=== PATIENT | female | born 1990 | race Caucasian/White ===

== ENCOUNTER 2016-05-02 19:52 | Emergency (ER) | payer OTHER ==
--- NOTE | 2016-05-02 23:06 | ED CLINICAL REPORT ---
Clinical Report - Physicians/Mid Levels [facility] [address] [place] [address] 05/02/2016 19:54 [id number] Time Seen: 20:15 May 02 2016. Arrived- By private vehicle. Historian- patient. HISTORY OF PRESENT ILLNESS Chief Complaint: ABDOMINAL PAIN. It is described as "pain" and it is described as located in the right upper quadrant and in the upper abdomen. This started today and is still present. 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 No vomiting or diarrhea. (Patient reports nausea over the last 3 days, with now associated abdominal pain right upper quadrant, unsure if this is alleviated or relieved with food. atient has had no cough, no fevers. No chest pain or shortness of breath.). REVIEW OF SYSTEMS No constipation, difficulty with urination, pain with urination, urinary frequency or fever. No chest pain, difficulty breathing or chills. Denies current . All systems otherwise negative, except as recorded above. PAST HISTORY Has had urinary calculi. SOCIAL HISTORY Smoker- current status unknown. History of drug use former heroin ivda. ADDITIONAL NOTES The nursing notes have been reviewed. PHYSICAL EXAM Vital Signs: 05/02/2016 20:03 BP: 147/72. HR: 88. RR: 16. O2 saturation: 100%. Temp: 98.9 F. Pain level now: 10/10. Eyes: Eyes normal inspection. ENT: Nose normal. Pharynx normal. Neck: Normal inspection. CVS: Normal heart rate and rhythm. Heart sounds normal. No cardiac murmur. Respiratory: No respiratory distress. Breath sounds normal. Abdomen: Soft. Mild tenderness in the upper abdomen and epigastric area. No guarding or Oliver's sign present. No obesity. Skin: Normal skin color. Neuro: Oriented X 3. LABS, X-RAYS, AND EKG EKG: EKG time: (2019). No acute process. No acute ischemia. Normal EKG. Rate: 87. Normal P waves. Normal LION. Normal QRS complex. Normal ST and T waves and QT. The study has been interpreted contemporaneously. The EKG appears to be a good tracing. Laboratory Tests: UA-Culture if indicated: (YUNG: 05/02/2016 21:17) ( [facility] 22[facility]54[facility] Final results Test Result Flag Units (Reference) URINE COLOR YELLOW URINE APPEARANCE CLEAR URINE GLUCOSE NEGATIVE (NEGATIVE) URINE BILIRUBIN NEGATIVE (NEGATIVE) URINE KETONE NEGATIVE (NEGATIVE) URINE SPECIFIC GRAVITY 1.010 (1.010-1.030) URINE PH 6.0 (5.0-8.0) URINE PROTEIN NEGATIVE (NEGATIVE) URINE UROBILINOGEN 0.2 EU/dL (0.2-1.0) URINE NITRITE NEGATIVE (NEGATIVE) URINE BLOOD NEGATIVE (NEGATIVE) URINE LEUK ESTERASE NEGATIVE (NEGATIVE) URINE RBC 0-1 rbc/hpf (0-1) URINE WBC 1-3 wbc/hpf (0-1) URINE EPITHELIAL CELLS 0-1 EPI/hpf (0-5) URINE BACTERIA NONE SEEN (NONE SEEN) URINE COMMENT CULT NOT INDICATED URINE CULTURES ARE SET-UP BASED ON THE FOLLOWING CRITERIA:POSITIVE NITRITEPOSITIVE LEUKOCYTE ESTERASEGREATER THAN 10 WHITE BLOOD CELLSMODERATE (2+) OR GREATER BACTERIA Urine: (YUNG: 05/02/2016 21:17) ( [facility] 05/02/2016 22:36) Final results Test Result Flag Units (Reference) URINE NEGATIVE CBC w Diff: (YUNG: 05/02/2016 20:49) ( [facility] 05/02/2016 21:03) Final results Test Result Flag Units (Reference) WHITE BLOOD COUNT 9.2 K/uL (4.5-11.5) RED BLOOD COUNT 4.71 M/uL (4.00-5.20) HEMOGLOBIN 13.9 gm/dL (12.0-16.0) HEMATOCRIT 41.1 % (36.0-46.0) MEAN CELL VOLUME 87 fL (80-100) MEAN CORPUSCULAR HGB 30 pg (26-34) MEAN CORPUSCULAR HGB CONC 34 g/dL (31-37) RED CELL DISTRIBUTION WIDTH 13.2 % (11.6-14.8) PLATELET COUNT 240 K/uL (150-400) NEUTROPHIL % 50.8 % (50-75) LYMPH % 42.5 H % (25-40) MONO % 4.2 % (3-14) EOSINOPHIL % 2.2 % (0-4) BASOPHIL % 0.3 % (0-2) Lipase: (YUNG: 05/02/2016 20:49) ( MsgRcvd 05/02/2016 21:48) Final results Test Result Flag Units (Reference) LIPASE 155 U/L (73-393) CMP: (YUNG: 05/02/2016 20:49) ( MsgRcvd 05/02/2016 21:57) Final results Test Result Flag Units (Reference) GLUCOSE 92 mg/dL (70-110) BUN 14 mg/dL (7-18) CREATININE 1.1 mg/dL (0.6-1.3) Estimated GFR >60 mL/min Estimated GFR- >60 mL/min Note: Persistent reduction over 3 months in eGFR<60 mL/min/1.73 m2 defines CKD. Patients with eGFR values>=60 mL/min/1.73 m2 may also have CKD if evidence ofpersistent proteinuria. Additional information may be foundat www.kidney.org. SODIUM 137 mmol/L (136-145) POTASSIUM 3.6 mmol/L (3.5-5.1) CHLORIDE 101 mmol/L (98-107) CARBON DIOXIDE 26 mmol/L (21-32) CALCIUM 8.6 mg/dL (8.5-10.1) TOTAL PROTEIN 7.1 g/dL (6.4-8.2) ALBUMIN 4.1 g/dL (3.3-5.0) BILIRUBIN, TOTAL 0.4 mg/dL (0.0-1.0) ALKALINE PHOSPHATASE 36 L U/L (46-116) AST (SGOT) 18 U/L (15-37) ALT (SGPT) 20 U/L (12-78) . Note - Tests: (US abd limited, neg). PROGRESS AND PROCEDURES Course of Care: During the time in the ED, the following DDX were considered: acute surgical abdomen, hemodynamic or metabolic instability, dehydration, gastroenteritis-viral, food borne, or bacterial, food intolerance, irritable or inflammatory bowel, infection, sepsis. Patient asleep in room, arousable, reports pain. She has no chest pain or shortness of breath. EKG unremarkable. Ultrasound is unremarkable. Labs are unremarkable. Patient to follow up outpatient. No shortness of breath or chest pain. Normal cardiac. PERC rule negative. 05/02/2016 22:23 BP: 119/76. HR: 68. RR: 16. O2 saturation: 100%. Temp: 98.2 F. Pain level now: 12/29. Patient is stable. Symptoms better. Patient/family counseled. Differential Diagnosis: I considered muscle strain, myocardial infarction, aortic dissection and pulmonary etiology as a possible cause of chest pain in this patient. This is a partial list of diagnoses considered. I considered gastritis, gastroenteritis, acute appendicitis, diverticulitis, biliary colic, cholecystitis, hepatitis, pancreatitis, common bile duct obstruction, splenic injury, splenic rupture, ascites, urinary tract infection, cystitis and ovarian cyst as a possible cause of abdominal pain in this patient. Disposition: Discharged. CLINICAL IMPRESSION Abdominal pain of unknown cause. INSTRUCTIONS Drink plenty of fluids. Warnings: Further evaluation is necessary. Prescription Medications: Zofran (orally disintegrating tablets) 4 mg: take 1 orally every 6 hours for 3 days as needed for nausea. Dispense ten (10). No refill. Substitution is permissible. Pepcid 20 mg: take 1 orally every 12 hours for 5 days as needed for indigestion. Dispense ten (10). No refills. Substitution is permissible. Ultram 50 mg: take 1 orally every 6 hours for 3 days, as needed for pain. Dispense ten (10). No refills. Phenergan 12.5 mg suppositories: insert 1 rectally every 6 hours as needed for nausea. Dispense ten (10). No refill. Substitution is permissible Follow-up: Follow up with your doctor in three days. Follow-up with: Hadley Del Rosario MD, General Surgeon, , [facility], [address] [place] [address], [facility] Follow up. Call for the next available appointment. (Electronically signed by Sweetie Lorenz P.AKanu-Starla 05/02/2016 23:25)
--- NOTE | 2016-05-02 23:06 | ED NURSING NOTES ---
Clinical Report - Nurses [facility] [address] [place] [address] 05/02/2016 19:54 Patient: EVE ALBRIGHT TRIAGE Triage time 2000 PM. Acuity: LEVEL 3. Chief Complaint: ABDOMINAL PAIN and NAUSEA. Alert. No acute distress. --20:08 Roc Coelho R.N. 20:03 05/02/16. BP: 147/72. HR: 88. RR: 16. O2 saturation: 100%. Temp: 98.9 F. Pain level now: 12/29. --20:08 Roc Coelho R.N. Weight: 72.5 kg stated. Height/Length: 61 inches Per Patient. BMI: 30.2. --20:06 Roc Coelho R.N. Medications Abilify Oral (Tablet 15 mg) 1 tablet, daily. ALPRAZolam Oral 1 mg, 3x a day as needed. Etodolac Oral. HydrOXYzine HCl Oral 25 mg- 50mg , 4x a day as needed. Levothyroxine Sodium Oral 112 mcg, daily. Methadone HCl Oral 78. Naproxen Oral 500 mg, 3x a day as needed. Tylenol Oral. --20:05 Roc Coelho R.N. Allergies Codeine.(itching) Compazine.(anxiety) Reglan.(anxiety) Toradol.(anxiety) Vancomycin.(itching, swelling) --20:05 Roc Coelho R.N. History Arrived by private vehicle. Historian: patient. Accompanied by family. This is a new problem and onset was gradual. (about 3 days). ( Patient presents to the ED with symptoms of gradual onset nausea x3 days and severe upper abdominal pain beginning just prior to arrival. Patient reports pain that comes and goes in her upper abdomen that wraps around her ribs.). 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 PAST MEDICAL HX: Last normal menstrual period- Apr 03. SOCIAL HX: Light tobacco smoker (cigarette)- less than 1/2 a pack per day. Alcohol use. (no). 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 No infectious disease exposure. FALL RISK ASSESSMENT: Fall risk assessment completed. No fall risk identified. NUTRITIONAL RISK ASSESSMENT: The nutritional risk assessment revealed no deficiencies. FUNCTIONAL ASSESSMENT: Functional assessment: no impairments noted. LEARNING NEEDS ASSESSMENT: The learning needs assessment revealed no barriers. SKIN INTEGRITY ASSESSMENT: Skin integrity risk assessment completed. No skin integrity risk identified. --20:08 Roc Coelho R.N. PROBLEMS: Back Pain. Tetanus Status. Acute Pain. Substance Abuse. Immunizations. Cellulitis. Pharyngitis. LNMP - Last Normal Menstrual Period. Lifestyle / Substance Problems. Abscess. --20:06 Roc Coelho R.N. ADDITIONAL SURGERIES: Abscess I&D's. Hernia Repair. Inguinal Hernia Repair. --20:06 Roc Coelho R.N. Interventions ID and allergy band on patient. --20:08 Roc Coelho R.N. PHYSICAL ASSESSMENT Ambulatory to room. GENERAL / NEURO / PSYCH: Alert. Oriented X 4. Appears in no acute distress. HEENT: Mucous membranes are pink. RESPIRATORY: Respirations not labored. Breath sounds within normal limits. CVS: Normal sinus rhythm noted. Capillary refill less than 2 seconds. GI / : The patient has had nausea. Emesis noted. Has vomited once. Obesity. Abdominal distention. Abdominal tenderness. Guarding present. Bowel sounds within normal limits. Stool color normal. SKIN: Skin is warm and dry. --20:10 Roc Coelho R.N. NURSING PROGRESS NOTES Reassurance given. Call light placed in reach. Side rails up x 2. Bed placed in lowest position. Brakes of bed on. --20:10 Roc Coelho R.N. 20:20. EKG was performed by a tech. --20:21 Paulette Hernandez ER Tech1 20:56 05/02/2016 Site #1 started via IV in the left wrist with an 22g angiocath; two attempts. Blood drawn: rainbow set. Labeled in the presence of the patient and sent to the lab. Saline lock flushed with 10 mL saline. --20:56 Roc Coelho R.N. 20:56 05/02/2016 Started IV Fluids IV NS (Saline); bolus of 1000 mL wide open via site #1. Allergies verified and confirmed 5 rights. IV patency established. IV site checked: no pain, redness, or swelling. IV flushed thoroughly pre- and post-medication administration. --20:56 Roc Coelho R.N. 20:57 05/02/2016 Started 12.5 mg of PHENERGAN (Promethazine HCl) IVPB in bag #1 1000 mL; over 15 minute(s) via site #1; Allergies verified and confirmed 5 rights. IV patency established. IV site checked: no pain, redness, or swelling. IV flushed thoroughly pre- and post-medication administration. --20:57 Roc Coelho R.N. 21:25. Checked patient name and birthdate: patient confirmed. Blood samples drawn with syringe and 25g butterfly by tech per protocol ; labeled in presence of the patient and sent to lab: rainbow set. --21:30 Yolande Oliver ER Tech1 21:39 05/02/16. BP: 100/60. HR: 63. RR: 16. O2 saturation: 96%. Pain level now: 12/29. --21:40 Roc Coelho R.N. Call light placed in reach. Side rails up x 2. Bed placed in lowest position. Brakes of bed on. --21:40 Roc Coelho R.N. 22:08 05/02/2016 Hydrocodone-APAP (Hydrocodone-Acetaminophen) PO 5/325 mg Tablets 10 mL given. Allergies verified, confirmed 5 rights and sedative warning given to the patient. --22:08 Roc Coelho R.N. Patient ID band checked for patient name and birthdate. Instructions provided to collect clean catch urine and patient verbalized understanding. Clean catch urine collected with return of yellow-colored clear urine; odor is normal; sample sent to lab for urinalysis, culture and HCG. Specimen labeled in the presence of the patient. Call light placed in reach. Side rails up x 2. Bed placed in lowest position. Brakes of bed on. --22:23 Roc Coelho R.N. 22:23 05/02/16. BP: 119/76. HR: 68. RR: 16. O2 saturation: 100%. Temp: 98.2 F. Pain level now: 12/29. --22:23 Roc Coelho R.N. ( Patient appears to be sleeping. Respirations even and unlabored.). --23:05 Roc Coelho R.N. 23:05/02/2016 Phenergan (Promethazine HCl) CO Supp/(CO) 12.5 mg given. Allergies verified, confirmed 5 rights and sedative warning given to the patient. --23:29 Roc Coelho R.N. DISPOSITION / DISCHARGE 23:05/02/2016 Site #1 removed upon discharge. Catheter intact. Pressure dressing applied. --23:31 Roc Coelho R.N. 23:05/02/2016 IV Fluids IV NS Discontinued: bag #1 discontinued upon discharge. Total amount infused: 1000 mL. IV patency established. IV site checked: no pain, redness, or swelling. IV flushed thoroughly. --23:31 Roc Coelho R.N. Departure time: 2331 PM. Condition at departure: improved. The goals identified in the patient's plan of care were met. No learning barriers present. Discharge instructions provided and reviewed with the patient. Reviewed medication(s) side effects, precautions, dosing and course information. Prescription(s) given to the patient. Patient verbalized understanding. Written instructions provided in Divehi. The patient was discharged home and accompanied by parent. She left the Emergency Department ambulatory and via private vehicle. Parent driving. FALL RISK ASSESSMENT: Fall risk assessment completed. No fall risk identified. --23:31 Roc Coelho R.N. 23:29 05/02/16. BP: 128/70. HR: 69. RR: 16. O2 saturation: 98%. Temp: 98.2 F (oral). Pain level now: 09/28. --23:31 Roc Coelho R.N. ( Eve upset because she wants a copy of her medical records from today's visit for her clinic she is being treated for heroin abuse. Gave Eve Medical Records number and asked her or the clinic to call to request from today's visit. She expresses frustration and anger stating "you guys didn't even find out what was going on with me and I am hurting." Neha (CANDIE) came back in to room to financial health counselor Eve on her discharge dx and verbalize her lab work was WNL. Eve reiterates she is frustrated we cannot tell her why she is still in a lot of pain. Neha (CANDIE) and Reddy (sales service technician) reviewed discharge medications for symptoms control with Eve. Eve requests to speak with Nursing Course Developer after being told we cannot print medical records from today's visit. NATACHA García (Director Of Culture) encouraged and reiterated Eve to call medical records or have the clinic call medical records on Wednesday. After Eve expressed concerned of being "kicked off her program," Ricky reassured Eve we treat patients who are going through rehab all the time and are more than happy to send medical records from visits to the clinic on behalf of the patient. Ricky (Director Of Culture) and Reddy (sales service technician) wrote names on Eve's dicharge paperwork per her request. Eve left angry and frustrated.). --00:09 Reddy Babb R.N. late entry -23:35 PM. ( Patient requesting to see RN stating that she has questions about discharge instructions. Patient states that she is frustrated that ED staff was not able to find a cause for abdominal pain and would not prescribed Vicodin for pain relief. Explained to patient that her lab work and imaging were WNL and emphasized taking the prescribed medications for symptom control. Emphasized the importance of follow up care in 3 days. Patient continues to express her frustration with ED staff and prescribed medications. Referred patient to cheryl, NATACHA.). --00:17 Roc Coelho R.N. Locked/Released at 05/03/2016 0:19 by Roc Coeloh R.N.
--- NOTE | 2016-05-02 23:06 | ED ORDER SUMMARY ---
..... Patient: HENRY ALBRIGHT OrderSheet [facility] VisitID: [id number] [address] [place] [address] 25y, F Registration Date/Time: 05/02/2016 ORDER SHEET Weight: 72.5 kg (stated) Allergies: Codeine, Compazine, Reglan, Toradol, Vancomycin GENERAL ORDERS: CBC w Diff Urgent (20:05/02/2016 EKoroleva P.A.-C) (Ack 20:09 ALawrence ER Tech1) (20:57 HOShaughnessy R.N.) CMP Urgent (20:05/02/2016 EKoroleva P.A.-C) (Ack 20:09 ALawrence ER Tech1) (20:57 HOShaughnessy R.N.) UA-Culture if indicated Urgent (20:05/02/2016 EKoroleva P.A.-C) (Ack 20:09 ALawrence ER Tech1) (22:24 HOShaughnessy R.N.) Urine Urgent (20:06 05/02/2016 EKoroleva P.A.-C) (Ack 20:09 ALawrence ER Tech1) (23:15 JDeElena R.N.) EKG - ER Stat (20:06 05/02/2016 EKoroleva P.A.-C) (Ack 20:09 ALawrence ER Tech1) (20:20 AMcQuoid ER Tech1) Lipase Urgent (20:08 05/02/2016 EKoroleva P.A.-C) (Ack 20:09 ALawrence ER Tech1) (20:57 HOShaughnessy R.N.) US Abdomen Limited (No) Urgent (20:05/02/2016 EKoroleva P.A.-C) (Ack 20:20 ALawrence ER Tech1) (23:16 JDeElena R.N.) NPO (20:05/02/2016 EKoroleva P.A.-C) (Ack 20:20 ALawrence ER Tech1) (21:29 ALawrence ER Tech1) MEDICATION ORDERS: Phenergan IV 12.5 mg (HIGH ALERT MEDICATION, NOW) (20:06 05/02/2016 EKoroleva P.A.-C) (20:57 Virgilio R.N.) Hydrocodone-APAP PO 30 mL (NOW, HIGH ALERT MEDICATION) (22:05 05/02/2016 EKoroleva P.A.-C) (22:08 HOScriss R.N.) Phenergan KS 12.5 mg (HIGH ALERT MEDICATION) (23:19 05/02/2016 EKoroleva P.A.-C) (23:29 HOScriss R.N.) IV FLUIDS: IV NS : initial bolus 1000 mL (1000 mL/hr), then 1000 mL/hr for X1 (NOW); Carlos (20:06 05/02/2016 EKoroleva P.A.-C) (20:56 HOScriss R.N.) ORDER SHEET NOTES: [Electronically signed by Sweetie Lorenz PKanuAKanu-C (23:25 05/02/2016)] [Electronically signed by Roc Coelho R.N. (00:19 05/03/2016)] [Electronically locked/signed by Roc Coelho R.N. (00:05/03/2016)]
--- NOTE | 2016-05-02 23:06 | ED NURSING NOTES ---
Clinical Report - Nurses [facility] [address] [place] [address] 05/02/2016 19:54 Patient: EVE ALBRIGHT TRIAGE Triage time 2000 PM. Acuity: LEVEL 3. Chief Complaint: ABDOMINAL PAIN and NAUSEA. Alert. No acute distress. --20:08 Roc Coelho R.N. 20:03 05/02/16. BP: 147/72. HR: 88. RR: 16. O2 saturation: 100%. Temp: 98.9 F. Pain level now: 12/29. --20:08 Roc Coelho R.N. Weight: 72.5 kg stated. Height/Length: 61 inches Per Patient. BMI: 30.2. --20:06 Roc Coelho R.N. Medications Abilify Oral (Tablet 15 mg) 1 tablet, daily. ALPRAZolam Oral 1 mg, 3x a day as needed. Etodolac Oral. HydrOXYzine HCl Oral 25 mg- 50mg , 4x a day as needed. Levothyroxine Sodium Oral 112 mcg, daily. Methadone HCl Oral 78. Naproxen Oral 500 mg, 3x a day as needed. Tylenol Oral. --20:05 Roc Coelho R.N. Allergies Codeine.(itching) Compazine.(anxiety) Reglan.(anxiety) Toradol.(anxiety) Vancomycin.(itching, swelling) --20:05 Roc Coelho R.N. History Arrived by private vehicle. Historian: patient. Accompanied by family. This is a new problem and onset was gradual. (about 3 days). ( Patient presents to the ED with symptoms of gradual onset nausea x3 days and severe upper abdominal pain beginning just prior to arrival. Patient reports pain that comes and goes in her upper abdomen that wraps around her ribs.). Treatment TRAVEL REGISTERED NURSE ONCOLOGY: (promethazine). PAST MEDICAL HX: Last normal menstrual period- Apr 03. SOCIAL HX: Light tobacco smoker (cigarette)- less than 1/2 a pack per day. Alcohol use. (no). 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 No infectious disease exposure. FALL RISK ASSESSMENT: Fall risk assessment completed. No fall risk identified. NUTRITIONAL RISK ASSESSMENT: The nutritional risk assessment revealed no deficiencies. FUNCTIONAL ASSESSMENT: Functional assessment: no impairments noted. LEARNING NEEDS ASSESSMENT: The learning needs assessment revealed no barriers. SKIN INTEGRITY ASSESSMENT: Skin integrity risk assessment completed. No skin integrity risk identified. --20:08 Roc Coelho R.N. PROBLEMS: Back Pain. Tetanus Status. Acute Pain. Substance Abuse. Immunizations. Cellulitis. Pharyngitis. LNMP - Last Normal Menstrual Period. Lifestyle / Substance Problems. Abscess. --20:06 Roc Coelho R.N. ADDITIONAL SURGERIES: Abscess I&D's. Hernia Repair. Inguinal Hernia Repair. --20:06 Roc Coelho R.N. Interventions ID and allergy band on patient. --20:08 Roc Coelho R.N. PHYSICAL ASSESSMENT Ambulatory to room. GENERAL / NEURO / PSYCH: Alert. Oriented X 4. Appears in no acute distress. HEENT: Mucous membranes are pink. RESPIRATORY: Respirations not labored. Breath sounds within normal limits. CVS: Normal sinus rhythm noted. Capillary refill less than 2 seconds. GI / : The patient has had nausea. Emesis noted. Has vomited once. Obesity. Abdominal distention. Abdominal tenderness. Guarding present. Bowel sounds within normal limits. Stool color normal. SKIN: Skin is warm and dry. --20:10 Roc Coelho R.N. NURSING PROGRESS NOTES Reassurance given. Call light placed in reach. Side rails up x 2. Bed placed in lowest position. Brakes of bed on. --20:10 Roc Coelho R.N. 20:20. EKG was performed by a tech. --20:21 Paulette Hernandez ER Tech1 20:56 05/02/2016 Site #1 started via IV in the left wrist with an 22g angiocath; two attempts. Blood drawn: rainbow set. Labeled in the presence of the patient and sent to the lab. Saline lock flushed with 10 mL saline. --20:56 Roc Coelho R.N. 20:56 05/02/2016 Started IV Fluids IV NS (Saline); bolus of 1000 mL wide open via site #1. Allergies verified and confirmed 5 rights. IV patency established. IV site checked: no pain, redness, or swelling. IV flushed thoroughly pre- and post-medication administration. --20:56 Roc Coelho R.N. 20:57 05/02/2016 Started 12.5 mg of PHENERGAN (Promethazine HCl) IVPB in bag #1 1000 mL; over 15 minute(s) via site #1; Allergies verified and confirmed 5 rights. IV patency established. IV site checked: no pain, redness, or swelling. IV flushed thoroughly pre- and post-medication administration. --20:57 Roc Coelho R.N. 21:25. Checked patient name and birthdate: patient confirmed. Blood samples drawn with syringe and 25g butterfly by tech per protocol ; labeled in presence of the patient and sent to lab: rainbow set. --21:30 Yolande Oliver ER Tech1 21:39 05/02/16. BP: 100/60. HR: 63. RR: 16. O2 saturation: 96%. Pain level now: 12/29. --21:40 Roc Coelho R.N. Call light placed in reach. Side rails up x 2. Bed placed in lowest position. Brakes of bed on. --21:40 Roc Coelho R.N. 22:08 05/02/2016 Hydrocodone-APAP (Hydrocodone-Acetaminophen) PO 5/325 mg Tablets 10 mL given. Allergies verified, confirmed 5 rights and sedative warning given to the patient. --22:08 Roc Coelho R.N. Patient ID band checked for patient name and birthdate. Instructions provided to collect clean catch urine and patient verbalized understanding. Clean catch urine collected with return of yellow-colored clear urine; odor is normal; sample sent to lab for urinalysis, culture and HCG. Specimen labeled in the presence of the patient. Call light placed in reach. Side rails up x 2. Bed placed in lowest position. Brakes of bed on. --22:23 Roc Coelho R.N. 22:23 05/02/16. BP: 119/76. HR: 68. RR: 16. O2 saturation: 100%. Temp: 98.2 F. Pain level now: 12/29. --22:23 Roc Coelho R.N. ( Patient appears to be sleeping. Respirations even and unlabored.). --23:05 Roc Coelho R.N. 23:05/02/2016 Phenergan (Promethazine HCl) MS Supp/(MS) 12.5 mg given. Allergies verified, confirmed 5 rights and sedative warning given to the patient. --23:29 Roc Coelho R.N. DISPOSITION / DISCHARGE 23:05/02/2016 Site #1 removed upon discharge. Catheter intact. Pressure dressing applied. --23:31 Roc Coelho R.N. 23:05/02/2016 IV Fluids IV NS Discontinued: bag #1 discontinued upon discharge. Total amount infused: 1000 mL. IV patency established. IV site checked: no pain, redness, or swelling. IV flushed thoroughly. --23:31 Roc Coelho R.N. Departure time: 2331 PM. Condition at departure: improved. The goals identified in the patient's plan of care were met. No learning barriers present. Discharge instructions provided and reviewed with the patient. Reviewed medication(s) side effects, precautions, dosing and course information. Prescription(s) given to the patient. Patient verbalized understanding. Written instructions provided in Romanian. The patient was discharged home and accompanied by parent. She left the Emergency Department ambulatory and via private vehicle. Parent driving. FALL RISK ASSESSMENT: Fall risk assessment completed. No fall risk identified. --23:31 Roc Coelho R.N. 23:29 05/02/16. BP: 128/70. HR: 69. RR: 16. O2 saturation: 98%. Temp: 98.2 F (oral). Pain level now: 09/28. --23:31 Roc Coelho R.N. ( Eve upset because she wants a copy of her medical records from today's visit for her clinic she is being treated for heroin abuse. Gave Eve Medical Records number and asked her or the clinic to call to request from today's visit. She expresses frustration and anger stating "you guys didn't even find out what was going on with me and I am hurting." Neha (CANDIE) came back in to room to student financial services counselor Eve on her discharge dx and verbalize her lab work was WNL. Eve reiterates she is frustrated we cannot tell her why she is still in a lot of pain. Neha (CANDIE) and Reddy (dust sampler) reviewed discharge medications for symptoms control with Eve. Eve requests to speak with Nursing Work Car Operator after being told we cannot print medical records from today's visit. NATACHA García (Mothercraft Nurse) encouraged and reiterated Eve to call medical records or have the clinic call medical records on Wednesday. After Eve expressed concerned of being "kicked off her program," Ricky reassured Eve we treat patients who are going through rehab all the time and are more than happy to send medical records from visits to the clinic on behalf of the patient. Ricky (Mothercraft Nurse) and Reddy (dust sampler) wrote names on Eve's dicharge paperwork per her request. Eve left angry and frustrated.). --00:09 Reddy Babb R.N. late entry -23:35 PM. ( Patient requesting to see RN stating that she has questions about discharge instructions. Patient states that she is frustrated that ED staff was not able to find a cause for abdominal pain and would not prescribed Vicodin for pain relief. Explained to patient that her lab work and imaging were WNL and emphasized taking the prescribed medications for symptom control. Emphasized the importance of follow up care in 3 days. Patient continues to express her frustration with ED staff and prescribed medications. Referred patient to cheryl, NATACHA.). --00:17 Roc Coelho R.N. Locked/Released at 05/03/2016 0:19 by Roc Coelho R.N.
--- NOTE | 2016-05-02 23:06 | ED CLINICAL REPORT ---
Clinical Report - Physicians/Mid Levels [facility] [address] [place] [address] 05/02/2016 19:54 [id number] Time Seen: 20:15 May 02 2016. Arrived- By private vehicle. Historian- patient. HISTORY OF PRESENT ILLNESS Chief Complaint: ABDOMINAL PAIN. It is described as "pain" and it is described as located in the right upper quadrant and in the upper abdomen. This started today and is still present. 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 No vomiting or diarrhea. (Patient reports nausea over the last 3 days, with now associated abdominal pain right upper quadrant, unsure if this is alleviated or relieved with food. atient has had no cough, no fevers. No chest pain or shortness of breath.). REVIEW OF SYSTEMS No constipation, difficulty with urination, pain with urination, urinary frequency or fever. No chest pain, difficulty breathing or chills. Denies current . All systems otherwise negative, except as recorded above. PAST HISTORY Has had urinary calculi. SOCIAL HISTORY Smoker- current status unknown. History of drug use former heroin ivda. ADDITIONAL NOTES The nursing notes have been reviewed. PHYSICAL EXAM Vital Signs: 05/02/2016 20:03 BP: 147/72. HR: 88. RR: 16. O2 saturation: 100%. Temp: 98.9 F. Pain level now: 10/10. Eyes: Eyes normal inspection. ENT: Nose normal. Pharynx normal. Neck: Normal inspection. CVS: Normal heart rate and rhythm. Heart sounds normal. No cardiac murmur. Respiratory: No respiratory distress. Breath sounds normal. Abdomen: Soft. Mild tenderness in the upper abdomen and epigastric area. No guarding or Oliver's sign present. No obesity. Skin: Normal skin color. Neuro: Oriented X 3. LABS, X-RAYS, AND EKG EKG: EKG time: (2019). No acute process. No acute ischemia. Normal EKG. Rate: 87. Normal P waves. Normal LION. Normal QRS complex. Normal ST and T waves and QT. The study has been interpreted contemporaneously. The EKG appears to be a good tracing. Laboratory Tests: UA-Culture if indicated: (YUNG: 05/02/2016 21:17) ( [facility] 05/02/2016 22:54) Final results Test Result Flag Units (Reference) URINE COLOR YELLOW URINE APPEARANCE CLEAR URINE GLUCOSE NEGATIVE (NEGATIVE) URINE BILIRUBIN NEGATIVE (NEGATIVE) URINE KETONE NEGATIVE (NEGATIVE) URINE SPECIFIC GRAVITY 1.010 (1.010-1.030) URINE PH 6.0 (5.0-8.0) URINE PROTEIN NEGATIVE (NEGATIVE) URINE UROBILINOGEN 0.2 EU/dL (0.2-1.0) URINE NITRITE NEGATIVE (NEGATIVE) URINE BLOOD NEGATIVE (NEGATIVE) URINE LEUK ESTERASE NEGATIVE (NEGATIVE) URINE RBC 0-1 rbc/hpf (0-1) URINE WBC 1-3 wbc/hpf (0-1) URINE EPITHELIAL CELLS 0-1 EPI/hpf (0-5) URINE BACTERIA NONE SEEN (NONE SEEN) URINE COMMENT CULT NOT INDICATED URINE CULTURES ARE SET-UP BASED ON THE FOLLOWING CRITERIA:POSITIVE NITRITEPOSITIVE LEUKOCYTE ESTERASEGREATER THAN 10 WHITE BLOOD CELLSMODERATE (2+) OR GREATER BACTERIA Urine: (YUNG: 05/02/2016 21:17) ( [facility] 22:36[facility] Final results Test Result Flag Units (Reference) URINE NEGATIVE CBC w Diff: (YUNG: 05/02/2016 20:49) ( [facility] 05[facility]02[facility] 21:03) Final results Test Result Flag Units (Reference) WHITE BLOOD COUNT 9.2 K/uL (4.5-11.5) RED BLOOD COUNT 4.71 M/uL (4.00-5.20) HEMOGLOBIN 13.9 gm/dL (12.0-16.0) HEMATOCRIT 41.1 % (36.0-46.0) MEAN CELL VOLUME 87 fL (80-100) MEAN CORPUSCULAR HGB 30 pg (26-34) MEAN CORPUSCULAR HGB CONC 34 g/dL (31-37) RED CELL DISTRIBUTION WIDTH 13.2 % (11.6-14.8) PLATELET COUNT 240 K/uL (150-400) NEUTROPHIL % 50.8 % (50-75) LYMPH % 42.5 H % (25-40) MONO % 4.2 % (3-14) EOSINOPHIL % 2.2 % (0-4) BASOPHIL % 0.3 % (0-2) Lipase: (YUNG: 05/02/2016 20:49) ( MsgRcvd 05/02/2016 21:48) Final results Test Result Flag Units (Reference) LIPASE 155 U/L (73-393) CMP: (YUNG: 05/02/2016 20:49) ( MsgRcvd 05/02/2016 21:57) Final results Test Result Flag Units (Reference) GLUCOSE 92 mg/dL (70-110) BUN 14 mg/dL (7-18) CREATININE 1.1 mg/dL (0.6-1.3) Estimated GFR >60 mL/min Estimated GFR- >60 mL/min Note: Persistent reduction over 3 months in eGFR<60 mL/min/1.73 m2 defines CKD. Patients with eGFR values>=60 mL/min/1.73 m2 may also have CKD if evidence ofpersistent proteinuria. Additional information may be foundat www.kidney.org. SODIUM 137 mmol/L (136-145) POTASSIUM 3.6 mmol/L (3.5-5.1) CHLORIDE 101 mmol/L (98-107) CARBON DIOXIDE 26 mmol/L (21-32) CALCIUM 8.6 mg/dL (8.5-10.1) TOTAL PROTEIN 7.1 g/dL (6.4-8.2) ALBUMIN 4.1 g/dL (3.3-5.0) BILIRUBIN, TOTAL 0.4 mg/dL (0.0-1.0) ALKALINE PHOSPHATASE 36 L U/L (46-116) AST (SGOT) 18 U/L (15-37) ALT (SGPT) 20 U/L (12-78) . Note - Tests: (US abd limited, neg). PROGRESS AND PROCEDURES Course of Care: During the time in the ED, the following DDX were considered: acute surgical abdomen, hemodynamic or metabolic instability, dehydration, gastroenteritis-viral, food borne, or bacterial, food intolerance, irritable or inflammatory bowel, infection, sepsis. Patient asleep in room, arousable, reports pain. She has no chest pain or shortness of breath. EKG unremarkable. Ultrasound is unremarkable. Labs are unremarkable. Patient to follow up outpatient. No shortness of breath or chest pain. Normal cardiac. PERC rule negative. 05/02/2016 22:23 BP: 119/76. HR: 68. RR: 16. O2 saturation: 100%. Temp: 98.2 F. Pain level now: 12/29. Patient is stable. Symptoms better. Patient/family counseled. Differential Diagnosis: I considered muscle strain, myocardial infarction, aortic dissection and pulmonary etiology as a possible cause of chest pain in this patient. This is a partial list of diagnoses considered. I considered gastritis, gastroenteritis, acute appendicitis, diverticulitis, biliary colic, cholecystitis, hepatitis, pancreatitis, common bile duct obstruction, splenic injury, splenic rupture, ascites, urinary tract infection, cystitis and ovarian cyst as a possible cause of abdominal pain in this patient. Disposition: Discharged. CLINICAL IMPRESSION Abdominal pain of unknown cause. INSTRUCTIONS Drink plenty of fluids. Warnings: Further evaluation is necessary. Prescription Medications: Zofran (orally disintegrating tablets) 4 mg: take 1 orally every 6 hours for 3 days as needed for nausea. Dispense ten (10). No refill. Substitution is permissible. Pepcid 20 mg: take 1 orally every 12 hours for 5 days as needed for indigestion. Dispense ten (10). No refills. Substitution is permissible. Ultram 50 mg: take 1 orally every 6 hours for 3 days, as needed for pain. Dispense ten (10). No refills. Phenergan 12.5 mg suppositories: insert 1 rectally every 6 hours as needed for nausea. Dispense ten (10). No refill. Substitution is permissible Follow-up: Follow up with your doctor in three days. Follow-up with: Hadley Del Rosario MD, General Surgeon, , [facility], [address] [place] [address], [facility] Follow up. Call for the next available appointment. (Electronically signed by Sweetie Lorenz P.AKanu-Starla 05/02/2016 23:25)
--- NOTE | 2016-05-02 23:06 | ED ORDER SUMMARY ---
..... Patient: HENRY ALBRIGHT OrderSheet [facility] VisitID: [id number] [address] [place] [address] 25y, F Registration Date/Time: 05/02/2016 ORDER SHEET Weight: 72.5 kg (stated) Allergies: Codeine, Compazine, Reglan, Toradol, Vancomycin GENERAL ORDERS: CBC w Diff Urgent (20:05/02/2016 EKoroleva P.A.-C) (Ack 20:09 ALawrence ER Tech1) (20:57 HOShaughnessy R.N.) CMP Urgent (20:05/02/2016 EKoroleva P.A.-C) (Ack 20:09 ALawrence ER Tech1) (20:57 HOShaughnessy R.N.) UA-Culture if indicated Urgent (20:05/02/2016 EKoroleva P.A.-C) (Ack 20:09 ALawrence ER Tech1) (22:24 HOShaughnessy R.N.) Urine Urgent (20:06 05/02/2016 EKoroleva P.A.-C) (Ack 20:09 ALawrence ER Tech1) (23:15 JDeElena R.N.) EKG - ER Stat (20:06 05/02/2016 EKoroleva P.A.-C) (Ack 20:09 ALawrence ER Tech1) (20:20 AMcQuoid ER Tech1) Lipase Urgent (20:08 05/02/2016 EKoroleva P.A.-C) (Ack 20:09 ALawrence ER Tech1) (20:57 HOShaughnessy R.N.) US Abdomen Limited (No) Urgent (20:05/02/2016 EKoroleva P.A.-C) (Ack 20:20 ALawrence ER Tech1) (23:16 JDeElena R.N.) NPO (20:05/02/2016 EKoroleva P.A.-C) (Ack 20:20 ALawrence ER Tech1) (21:29 ALawrence ER Tech1) MEDICATION ORDERS: Phenergan IV 12.5 mg (HIGH ALERT MEDICATION, NOW) (20:06 05/02/2016 EKoroleva P.A.-C) (20:57 Virgilio R.N.) Hydrocodone-APAP PO 30 mL (NOW, HIGH ALERT MEDICATION) (22:05 05/02/2016 EKoroleva P.A.-C) (22:08 HOScriss R.N.) Phenergan [place] 12.5 mg (HIGH ALERT MEDICATION) (23:19 05/02/2016 EKoroleva P.A.-C) (23:29 HOScriss R.N.) IV FLUIDS: IV NS : initial bolus 1000 mL (1000 mL/hr), then 1000 mL/hr for X1 (NOW); Carlos (20:06 05/02/2016 EKoroleva P.A.-C) (20:56 HOScriss R.N.) ORDER SHEET NOTES: [Electronically signed by Sweetie Lorenz PKanuAKanu-C (23:25 05/02/2016)] [Electronically signed by Roc Coelho R.N. (00:19 05/03/2016)] [Electronically locked/signed by Roc Coelho R.N. (00:05/03/2016)]
--- NOTE | 2016-05-03 00:15 | DIAGNOSTIC IMAGING REPORT ---
PROCEDURE: US ABDOMEN ULTRASOUND-LIMITED INDICATION: RUQ PAIN TECHNIQUE: Whaley scale and color Doppler sonographic images of the abdomen were obtained. COMPARISON: None. FINDINGS: Normal gallbladder and CBD (4.5 mm). Negative Oliver's sign. Normal liver and right kidney (11 cm). Pancreas not well visualized. Aorta and IVC are patent. Normal hepatopetal flow in the portal vein. IMPRESSION: 1. Negative right upper quadrant ultrasound
--- NOTE | 2016-05-03 00:19 | ED DISCHARGE INSTRUCTIONS ---
Patient: HENRY ALBRIGHT General Instructions [facility] VisitID: [id number] [address], [place] [id number] 25y, F Registration Date/Time: 05/02/2016 Abdominal pain of unknown cause. INSTRUCTIONS Drink plenty of fluids. Warnings: Further evaluation is necessary. Prescription Medications: Zofran (orally disintegrating tablets) 4 mg: take 1 orally every 6 hours for 3 days as needed for nausea. Dispense ten (10). No refill. Substitution is permissible. Pepcid 20 mg: take 1 orally every 12 hours for 5 days as needed for indigestion. Dispense ten (10). No refills. Substitution is permissible. Ultram 50 mg: take 1 orally every 6 hours for 3 days, as needed for pain. Dispense ten (10). No refills. Phenergan 12.5 mg suppositories: insert 1 rectally every 6 hours as needed for nausea. Dispense ten (10). No refill. Substitution is permissible Follow-up: Follow up with your doctor in three days. Follow-up with: Hadley Del Rosario MD, General Surgeon, , [facility], [address] [place] [address] Follow up. Call for the next available appointment. ADDITIONAL INFORMATION Epigastric Pain (Uncertain Cause) Epigastric pain can be a sign of disease in the upper abdomen. Common causes include: Acid reflux (stomach acid flowing up into the esophagus) Gastritis (irritation of the stomach lining) Peptic Ulcer Disease Inflammation of the pancreas Gallstone Infection in the gallbladder Pain may be dull or burning. It may spread upward to the chest or to the back. There may be other symptoms such as belching, bloating, cramps or hunger pains. There may be weight loss or poor appetite, nausea or vomiting. Since the diagnosis of your pain is not certain yet, further tests will be needed. Sometimes the doctor will treat you for the most likely condition to see if there is improvement before doing further tests. Home Care: Unless told otherwise, you may try antacids (Mylanta or Maalox) help neutralize stomach acid. This may relieve your pain. Take 1-2 tablespoons or tablets one hour after meals and at bedtime. The liquid form coats the stomach better than the chewable tablets and is preferred. If Tagamet (cimetidine), Zantac (ranitidine), or Carafate (sucralfate) has also been prescribed, allow one hour between taking this medicine and taking the antacids. Avoid foods that irritate the stomach. Follow a light diet until you are feeling better. Avoid alcohol, caffeine, and tobacco. Talk to your doctor before taking any [id number] medicine that contains aspirin or an anti-inflammatory drug such as ibuprofen, Advil, Motrin, Naprosyn, or Aleve. Follow Up with your doctor or as advised if you do not improve over the next 48 hours. Get Prompt Medical Attention if any of the following occur: Stomach pain worsens or moves to the right lower part of the abdomen Chest pain appears, or if it worsens or spreads to the chest, back, neck, shoulder, or arm Frequent vomiting (cant keep down liquids) Blood in the stool or vomit (red or black color) Feeling weak or dizzy, fainting, or having trouble breathing Fever of 100.4F (38C) or higher, or as directed by your healthcare provider Abdominal swelling Symptoms With Uncertain Cause [Adult] Based on the exam and any tests that were performed today, the exact cause of your symptoms is not certain. While your condition does not seem serious, the signs of a serious problem may take more time to appear. Therefore, it is important for you to watch for any new symptoms or worsening of your condition.Follow up with your doctor or this facility, as directed.A repeat physical exam or additional testing at a later time may uncover a cause for your symptoms that is not evident today. Home Care: Resume your usual activities and diet when this feels comfortable to do so. Follow Up with your doctor, or as advised by our staff.Contact your doctor sooner if your symptoms do not begin to improve in the next few days. [NOTE: If you had an x-ray, CT scan, ultrasound, or ECG (electrocardiogram), it will be reviewed by a specialist. You will be notified of any new findings that may affect your care.] Get Prompt Medical Attention if any of the following occur: Current symptoms get worse New symptoms appear [place] Diet A bland diet is used for patients with an upset stomach. It consists of foods that are mild and easy to digest. It is better to eat small frequent meals rather than three large meals a day. BEVERAGES OK: Fruit juices, non-caffeinated teas and coffee, non-carbonated herrera AVOID: Carbonated beverage, caffeinated tea and coffee, all alcoholic beverages BREAD OK: Refined white, wheat or rye bread, susanna or soda crackers, [place] toast, plain rolls, bagels AVOID: Whole-grain bread CEREAL OK: Refined cereals: cooked or ready to eat AVOID: Whole grain cereals and granola, or those containing bran, seeds or nuts DESSERTS OK: Peanut butter and all others except those to "avoid" AVOID: Chocolate, cocoa, coconut, popcorn, nuts, seeds, jam, marmalade FRUITS OK: Canned, cooked, frozen or fresh fruits without seeds or tough skin AVOID: Olives, skin and seeds of fruit MEATS OK: All fresh or preserved meat, fish and fowl AVOID: Any that are prepared with those spices to "avoid" CHEESE & EGGS OK: Eggs, cottage cheese, cream cheese, other cheeses AVOID: All cheeses made with those spices to "avoid" POTATOES & PASTA OK: Potato, rice, macaroni, noodles, spaghetti AVOID: None SOUPS OK: All soups without heavy seasoning AVOID: Soups made with those spices to "avoid" VEGETABLES OK: Canned, cooked, fresh or frozen mildly flavored vegetables without seeds, skins or coarse fiber AVOID: Vegetables prepared with those spices to "avoid"; skin and seeds of vegetables and those with coarse fiber SPICES OK: Salt, lemon and telida juice, vinegar, all extracts, angelica, cinnamon, thyme, mace, allspice, paprika AVOID: [place] powder, cloves, pepper, seed spices, garlic, gravy pickles, highly seasoned salad dressings Clear Liquid Diet Clear liquids are any liquid that you can see through as well as those that are very easy to digest. This is used while the body is recovering from irritation or infection of the stomach or intestinal tract. It may also be used before special procedures or surgery. This diet is to be used no more than three days. You may include the following items. Adults Adults should drink a total of 23 quarts of liquid per day. It may be easier to drink small frequent servings rather than a few large ones. Liquids can include: Fruit juices.Strained orange juice or lemonade (no pulp), apple, grape and cranberry juice, clear fruit drinks, sports drinks Beverages.Sport drinks, sodas, mineral water (plain or flavored), tea, black coffee, liquid gelatin (add twice the recommended amount of water) Soups.Clear broth, consomm, bouillon Desserts.Plain gelatin, popsicles, fruit juice bars Children Over 2 years old The following liquids are acceptable for children over age 2: Fruit juices.Strained orange juice or lemonade (no pulp), apple, grape and cranberry juice, clear fruit drinks Beverages. Sports drinks, sodas, mineral water (plain or flavored), tea, liquid gelatin (add twice the recommended amount of water) Soups. Clear broth, consomm, bouillon Desserts. Plain gelatin, popsicles, fruit juice bars Children under 2 years old Oral rehydration fluids such are available at drug stores and most grocery stores without a prescription. Ondansetron Hydrochloride Oral tablet What is this medicine? ONDANSETRON (on KENNEDY se frans[place]) is used to treat nausea and vomiting caused by chemotherapy. It is also used to prevent or treat nausea and vomiting after surgery. How should I use this medicine? Take this medicine by mouth with a glass of water. Follow the directions on your prescription label. Take your doses at regular intervals. Do not take your medicine more often than directed. Talk to your automatic machines supervisor regarding the use of this medicine in children. Special care may be needed. What side effects may I notice from receiving this medicine? Side effects that you should report to your doctor or health adult live in caregiver as soon as possible: allergic reactions like skin rash, itching or hives, swelling of the face, lips or tongue breathing problems dizziness fast or irregular heartbeat feeling faint or lightheaded, falls fever and chills swelling of the hands or feet tightness in the chest Side effects that usually do not require medical attention (report to your doctor or health adult live in caregiver if they continue or are bothersome): constipation or diarrhea headache What may interact with this medicine? Do not take this medicine with any of the following medications: -apomorphine -cisapride -dofetilide -dronedarone -pimozide -thioridazine -ziprasidone This medicine may also interact with the following medications: -carbamazepine -phenytoin -rifampicin -tramadol -other medicines that prolong the QT interval (cause an abnormal heart rhythm) What if I miss a dose? If you miss a dose, take it as soon as you can. If it is almost time for your next dose, take only that dose. Do not take double or extra doses. Where should I keep my medicine? Keep out of the reach of children. Store between 2 and 30 degrees C (36 and 86 degrees F). Throw away any unused medicine after the expiration date. What should I tell my health care provider before I take this medicine? They need to know if you have any of these conditions: heart disease history of irregular heartbeat liver disease low levels of magnesium or potassium in the blood an unusual or allergic reaction to ondansetron, granisetron, other medicines, foods, dyes, or preservatives or trying to get breast-feeding What should I watch for while using this medicine? Check with your doctor or health adult live in caregiver right away if you have any sign of an allergic reaction. Famotidine Oral tablet What is this medicine? FAMOTIDINE (fa YVETTE ti dedrick) is a type of antihistamine that blocks the release of stomach acid. It is used to treat stomach or intestinal ulcers. It can also relieve heartburn from acid reflux. How should I use this medicine? Take this medicine by mouth with a glass of water. Follow the directions on the prescription label. If you only take this medicine once a day, take it at bedtime. Take your doses at regular intervals. Do not take your medicine more often than directed. Talk to your automatic machines supervisor regarding the use of this medicine in children. Special care may be needed. What side effects may I notice from receiving this medicine? Side effects that you should report to your doctor or health adult live in caregiver as soon as possible: agitation, nervousness confusion hallucinations skin rash, itching Side effects that usually do not require medical attention (report to your doctor or health adult live in caregiver if they continue or are bothersome): constipation diarrhea dizziness headache What may interact with this medicine? delavirdine itraconazole ketoconazole What if I miss a dose? If you miss a dose, take it as soon as you can. If it is almost time for your next dose, take only that dose. Do not take double or extra doses. Where should I keep my medicine? Keep out of the reach of children. Store at room temperature between 15 and 30 degrees C (59 and 86 degrees F). Do not freeze. Throw away any unused medicine after the expiration date. What should I tell my health care provider before I take this medicine? They need to know if you have any of these conditions: kidney or liver disease trouble swallowing an unusual or allergic reaction to famotidine, other medicines, foods, dyes, or preservatives or trying to get breast-feeding What should I watch for while using this medicine? Tell your doctor or health adult live in caregiver if your condition does not start to get better or if it gets worse. Finish the full course of tablets prescribed, even if you feel better. Do not take with aspirin, ibuprofen or other antiinflammatory medicines. These can make your condition worse. Do not smoke cigarettes or drink alcohol. These cause irritation in your stomach and can increase the time it will take for ulcers to heal. If you get black, tarry stools or vomit up what looks like coffee grounds, call your doctor or health adult live in caregiver at once. You may have a bleeding ulcer. You have been given the following additional information: Epigastric Pain (Uncertain Cause) Symptoms With Uncertain Cause Diet, [place] (Adult) Diet, Clear Liquid Ondansetron Hydrochloride Oral tablet Famotidine Oral tablet (Electronically signed by Sweetie Lorenz P.A.-C 05/02/2016 23:25)
--- NOTE | 2016-05-03 00:19 | ED MED RECONCILIATION SUMMARY ---
Patient: HENRY ALBRIGHT Medication Reconciliation Report [facility] VisitID: [id number] [address] [place] [address] 25y, F Registration Date/Time: 05/02/2016 Weight: 72.5 kg Height/Length: 61 in. BMI: 30.2 ALLERGIES: Codeine, Compazine, Reglan, Toradol, Vancomycin The patient's Home Medications are listed below: THE FOLLOWING MEDICATIONS NEED TO BE RECONCILED: Abilify Oral (15 mg) 1 tablet, daily ALPRAZolam Oral 1 mg, 3x a day Etodolac Oral HydrOXYzine HCl Oral 25 mg- 50mg , 4x a day Levothyroxine Sodium Oral 112 mcg, daily Methadone HCl Oral 78 Naproxen Oral 500 mg, 3x a day Tylenol Oral The source(s) of the original Home Medication information: Not obtained. The following Medications were given to the patient in the Emergency Department: IV NS IV Fluids bolus 1000 mL wide open, administered: 05/02/2016 8:56:00 PM PHENERGAN [IVPB] IVPB bolus 0, then 12.5 mg, administered: 05/02/2016 8:57:00 PM Hydrocodone-APAP [PO] PO 10 mL, administered: 05/02/2016 10:08:00 PM Phenergan [AZ] AZ 12.5 mg, administered: 05/02/2016 11:29:00 PM The following Medications were prescribed to the patient: Zofran (orally disintegrating tablets) 4 mg: take 1 orally every 6 hours for 3 days as needed for nausea. Dispense ten (10). No refill. Substitution is permissible. -- Alonzooleva, Sweetie, P.A.-C Pepcid 20 mg: take 1 orally every 12 hours for 5 days as needed for indigestion. Dispense ten (10). No refills. Substitution is permissible. -- Koroleva, Sweetie, P.A.-C Ultram 50 mg: take 1 orally every 6 hours for 3 days, as needed for pain. Dispense ten (10). No refills. -- Koroleva, Sweetie, P.A.-C Phenergan 12.5 mg suppositories: insert 1 rectally every 6 hours as needed for nausea. Dispense ten (10). No refill. Substitution is permissible -- Sweetie Lorenz, Madai-C
--- NOTE | 2016-05-03 00:19 | ED MED RECONCILIATION SUMMARY ---
Patient: HENRY ALBRIGHT Medication Reconciliation Report [facility] VisitID: [id number] [address] [place] [address] 25y, F Registration Date/Time: 05/02/2016 Weight: 72.5 kg Height/Length: 61 in. BMI: 30.2 ALLERGIES: Codeine, Compazine, Reglan, Toradol, Vancomycin The patient's Home Medications are listed below: THE FOLLOWING MEDICATIONS NEED TO BE RECONCILED: Abilify Oral (15 mg) 1 tablet, daily ALPRAZolam Oral 1 mg, 3x a day Etodolac Oral HydrOXYzine HCl Oral 25 mg- 50mg , 4x a day Levothyroxine Sodium Oral 112 mcg, daily Methadone HCl Oral 78 Naproxen Oral 500 mg, 3x a day Tylenol Oral The source(s) of the original Home Medication information: Not obtained. The following Medications were given to the patient in the Emergency Department: IV NS IV Fluids bolus 1000 mL wide open, administered: 05/02/2016 8:56:00 PM PHENERGAN [IVPB] IVPB bolus 0, then 12.5 mg, administered: 05/02/2016 8:57:00 PM Hydrocodone-APAP [PO] PO 10 mL, administered: 05/02/2016 10:08:00 PM Phenergan [NC] NC 12.5 mg, administered: 05/02/2016 11:29:00 PM The following Medications were prescribed to the patient: Zofran (orally disintegrating tablets) 4 mg: take 1 orally every 6 hours for 3 days as needed for nausea. Dispense ten (10). No refill. Substitution is permissible. -- Alonzooleva, Sweetie, P.A.-C Pepcid 20 mg: take 1 orally every 12 hours for 5 days as needed for indigestion. Dispense ten (10). No refills. Substitution is permissible. -- Koroleva, Sweetie, P.A.-C Ultram 50 mg: take 1 orally every 6 hours for 3 days, as needed for pain. Dispense ten (10). No refills. -- Koroleva, Sweetie, P.A.-C Phenergan 12.5 mg suppositories: insert 1 rectally every 6 hours as needed for nausea. Dispense ten (10). No refill. Substitution is permissible -- Sweetie Lorenz, Madai-C
--- NOTE | 2016-05-03 00:19 | ED MAR SUMMARY ---
..... Medication Administration Record [facility] [address] [place] [address] Patient: HENRY ALBRIGHT Visit ID: [id number] 25y, F Weight: 72.5 kg Height/Length: 61 in BMI: 30.2 ALLERGIES: Codeine, Compazine, Reglan, Toradol, Vancomycin Start 20:56 05/02/2016 Roc Coelho R.N., Stop 23:31 05/02/2016 Roc Coelho R.N. Medication Administered: IV NS (SALINE), Dose: IV Fluids, Bolus: 1000 mL wide open, Site: #1 left wrist. Medication Ordered: IV NS : initial bolus 1000 mL (1000 mL/hr), then 1000 mL/hr for X1 (NOW); Carlos. Start 20:57 05/02/2016 Roc Coelho R.N. Medication Administered: PHENERGAN [IVPB] (PROMETHAZINE HCL), Dose: 12.5 mg IVPB over 15 minute(s), Dispensed: 1000 mL bag, Site: #1 left wrist. Medication Ordered: Phenergan IV 12.5 mg (HIGH ALERT MEDICATION, NOW). Given 22:08 05/02/2016 Roc Coelho R.N. Medication Administered: HYDROCODONE-APAP [PO] (HYDROCODONE-ACETAMINOPHEN), Dose: 10 mL 5/325 mg Tablets PO. Medication Ordered: Hydrocodone-APAP PO 30 mL (NOW, HIGH ALERT MEDICATION). Given 23:29 05/02/2016 Roc Coelho R.N. Medication Administered: PHENERGAN [OK] (PROMETHAZINE HCL), Dose: 12.5 mg Supp/(OK) OK. Medication Ordered: Phenergan OK 12.5 mg (HIGH ALERT MEDICATION).
--- NOTE | 2016-05-03 00:19 | ED DISCHARGE INSTRUCTIONS ---
Patient: HENRY ALBRIGHT General Instructions [facility] VisitID: [id number] [address], [place] [id number] 25y, F Registration Date/Time: 05/02/2016 Abdominal pain of unknown cause. INSTRUCTIONS Drink plenty of fluids. Warnings: Further evaluation is necessary. Prescription Medications: Zofran (orally disintegrating tablets) 4 mg: take 1 orally every 6 hours for 3 days as needed for nausea. Dispense ten (10). No refill. Substitution is permissible. Pepcid 20 mg: take 1 orally every 12 hours for 5 days as needed for indigestion. Dispense ten (10). No refills. Substitution is permissible. Ultram 50 mg: take 1 orally every 6 hours for 3 days, as needed for pain. Dispense ten (10). No refills. Phenergan 12.5 mg suppositories: insert 1 rectally every 6 hours as needed for nausea. Dispense ten (10). No refill. Substitution is permissible Follow-up: Follow up with your doctor in three days. Follow-up with: Hadley Del Rosario MD, General Surgeon, , [facility], [address] [place] [address] Follow up. Call for the next available appointment. ADDITIONAL INFORMATION Epigastric Pain (Uncertain Cause) Epigastric pain can be a sign of disease in the upper abdomen. Common causes include: Acid reflux (stomach acid flowing up into the esophagus) Gastritis (irritation of the stomach lining) Peptic Ulcer Disease Inflammation of the pancreas Gallstone Infection in the gallbladder Pain may be dull or burning. It may spread upward to the chest or to the back. There may be other symptoms such as belching, bloating, cramps or hunger pains. There may be weight loss or poor appetite, nausea or vomiting. Since the diagnosis of your pain is not certain yet, further tests will be needed. Sometimes the doctor will treat you for the most likely condition to see if there is improvement before doing further tests. Home Care: Unless told otherwise, you may try antacids (Mylanta or Maalox) help neutralize stomach acid. This may relieve your pain. Take 1-2 tablespoons or tablets one hour after meals and at bedtime. The liquid form coats the stomach better than the chewable tablets and is preferred. If Tagamet (cimetidine), Zantac (ranitidine), or Carafate (sucralfate) has also been prescribed, allow one hour between taking this medicine and taking the antacids. Avoid foods that irritate the stomach. Follow a light diet until you are feeling better. Avoid alcohol, caffeine, and tobacco. Talk to your doctor before taking any [id number] medicine that contains aspirin or an anti-inflammatory drug such as ibuprofen, Advil, Motrin, Naprosyn, or Aleve. Follow Up with your doctor or as advised if you do not improve over the next 48 hours. Get Prompt Medical Attention if any of the following occur: Stomach pain worsens or moves to the right lower part of the abdomen Chest pain appears, or if it worsens or spreads to the chest, back, neck, shoulder, or arm Frequent vomiting (cant keep down liquids) Blood in the stool or vomit (red or black color) Feeling weak or dizzy, fainting, or having trouble breathing Fever of 100.4F (38C) or higher, or as directed by your healthcare provider Abdominal swelling Symptoms With Uncertain Cause [Adult] Based on the exam and any tests that were performed today, the exact cause of your symptoms is not certain. While your condition does not seem serious, the signs of a serious problem may take more time to appear. Therefore, it is important for you to watch for any new symptoms or worsening of your condition.Follow up with your doctor or this facility, as directed.A repeat physical exam or additional testing at a later time may uncover a cause for your symptoms that is not evident today. Home Care: Resume your usual activities and diet when this feels comfortable to do so. Follow Up with your doctor, or as advised by our staff.Contact your doctor sooner if your symptoms do not begin to improve in the next few days. [NOTE: If you had an x-ray, CT scan, ultrasound, or ECG (electrocardiogram), it will be reviewed by a specialist. You will be notified of any new findings that may affect your care.] Get Prompt Medical Attention if any of the following occur: Current symptoms get worse New symptoms appear Ziebach Diet A bland diet is used for patients with an upset stomach. It consists of foods that are mild and easy to digest. It is better to eat small frequent meals rather than three large meals a day. BEVERAGES OK: Fruit juices, non-caffeinated teas and coffee, non-carbonated herrera AVOID: Carbonated beverage, caffeinated tea and coffee, all alcoholic beverages BREAD OK: Refined white, wheat or rye bread, susanna or soda crackers, [place] toast, plain rolls, bagels AVOID: Whole-grain bread CEREAL OK: Refined cereals: cooked or ready to eat AVOID: Whole grain cereals and granola, or those containing bran, seeds or nuts DESSERTS OK: Peanut butter and all others except those to "avoid" AVOID: Chocolate, cocoa, coconut, popcorn, nuts, seeds, jam, marmalade FRUITS OK: Canned, cooked, frozen or fresh fruits without seeds or tough skin AVOID: Olives, skin and seeds of fruit MEATS OK: All fresh or preserved meat, fish and fowl AVOID: Any that are prepared with those spices to "avoid" CHEESE & EGGS OK: Eggs, cottage cheese, cream cheese, other cheeses AVOID: All cheeses made with those spices to "avoid" POTATOES & PASTA OK: Potato, rice, macaroni, noodles, spaghetti AVOID: None SOUPS OK: All soups without heavy seasoning AVOID: Soups made with those spices to "avoid" VEGETABLES OK: Canned, cooked, fresh or frozen mildly flavored vegetables without seeds, skins or coarse fiber AVOID: Vegetables prepared with those spices to "avoid"; skin and seeds of vegetables and those with coarse fiber SPICES OK: Salt, lemon and [place] juice, vinegar, all extracts, angelica, cinnamon, thyme, mace, allspice, paprika AVOID: Bison powder, cloves, pepper, seed spices, garlic, gravy pickles, highly seasoned salad dressings Clear Liquid Diet Clear liquids are any liquid that you can see through as well as those that are very easy to digest. This is used while the body is recovering from irritation or infection of the stomach or intestinal tract. It may also be used before special procedures or surgery. This diet is to be used no more than three days. You may include the following items. Adults Adults should drink a total of 23 quarts of liquid per day. It may be easier to drink small frequent servings rather than a few large ones. Liquids can include: Fruit juices.Strained orange juice or lemonade (no pulp), apple, grape and cranberry juice, clear fruit drinks, sports drinks Beverages.Sport drinks, sodas, mineral water (plain or flavored), tea, black coffee, liquid gelatin (add twice the recommended amount of water) Soups.Clear broth, consomm, bouillon Desserts.Plain gelatin, popsicles, fruit juice bars Children Over 2 years old The following liquids are acceptable for children over age 2: Fruit juices.Strained orange juice or lemonade (no pulp), apple, grape and cranberry juice, clear fruit drinks Beverages. Sports drinks, sodas, mineral water (plain or flavored), tea, liquid gelatin (add twice the recommended amount of water) Soups. Clear broth, consomm, bouillon Desserts. Plain gelatin, popsicles, fruit juice bars Children under 2 years old Oral rehydration fluids such are available at drug stores and most grocery stores without a prescription. Ondansetron Hydrochloride Oral tablet What is this medicine? ONDANSETRON (on KENNEDY se fransisco) is used to treat nausea and vomiting caused by chemotherapy. It is also used to prevent or treat nausea and vomiting after surgery. How should I use this medicine? Take this medicine by mouth with a glass of water. Follow the directions on your prescription label. Take your doses at regular intervals. Do not take your medicine more often than directed. Talk to your general inspector regarding the use of this medicine in children. Special care may be needed. What side effects may I notice from receiving this medicine? Side effects that you should report to your doctor or health customer care assistant as soon as possible: allergic reactions like skin rash, itching or hives, swelling of the face, lips or tongue breathing problems dizziness fast or irregular heartbeat feeling faint or lightheaded, falls fever and chills swelling of the hands or feet tightness in the chest Side effects that usually do not require medical attention (report to your doctor or health customer care assistant if they continue or are bothersome): constipation or diarrhea headache What may interact with this medicine? Do not take this medicine with any of the following medications: -apomorphine -cisapride -dofetilide -dronedarone -pimozide -thioridazine -ziprasidone This medicine may also interact with the following medications: -carbamazepine -phenytoin -rifampicin -tramadol -other medicines that prolong the QT interval (cause an abnormal heart rhythm) What if I miss a dose? If you miss a dose, take it as soon as you can. If it is almost time for your next dose, take only that dose. Do not take double or extra doses. Where should I keep my medicine? Keep out of the reach of children. Store between 2 and 30 degrees C (36 and 86 degrees F). Throw away any unused medicine after the expiration date. What should I tell my health care provider before I take this medicine? They need to know if you have any of these conditions: heart disease history of irregular heartbeat liver disease low levels of magnesium or potassium in the blood an unusual or allergic reaction to ondansetron, granisetron, other medicines, foods, dyes, or preservatives or trying to get breast-feeding What should I watch for while using this medicine? Check with your doctor or health customer care assistant right away if you have any sign of an allergic reaction. Famotidine Oral tablet What is this medicine? FAMOTIDINE (fa YVETTE ti dedrick) is a type of antihistamine that blocks the release of stomach acid. It is used to treat stomach or intestinal ulcers. It can also relieve heartburn from acid reflux. How should I use this medicine? Take this medicine by mouth with a glass of water. Follow the directions on the prescription label. If you only take this medicine once a day, take it at bedtime. Take your doses at regular intervals. Do not take your medicine more often than directed. Talk to your general inspector regarding the use of this medicine in children. Special care may be needed. What side effects may I notice from receiving this medicine? Side effects that you should report to your doctor or health customer care assistant as soon as possible: agitation, nervousness confusion hallucinations skin rash, itching Side effects that usually do not require medical attention (report to your doctor or health customer care assistant if they continue or are bothersome): constipation diarrhea dizziness headache What may interact with this medicine? delavirdine itraconazole ketoconazole What if I miss a dose? If you miss a dose, take it as soon as you can. If it is almost time for your next dose, take only that dose. Do not take double or extra doses. Where should I keep my medicine? Keep out of the reach of children. Store at room temperature between 15 and 30 degrees C (59 and 86 degrees F). Do not freeze. Throw away any unused medicine after the expiration date. What should I tell my health care provider before I take this medicine? They need to know if you have any of these conditions: kidney or liver disease trouble swallowing an unusual or allergic reaction to famotidine, other medicines, foods, dyes, or preservatives or trying to get breast-feeding What should I watch for while using this medicine? Tell your doctor or health customer care assistant if your condition does not start to get better or if it gets worse. Finish the full course of tablets prescribed, even if you feel better. Do not take with aspirin, ibuprofen or other antiinflammatory medicines. These can make your condition worse. Do not smoke cigarettes or drink alcohol. These cause irritation in your stomach and can increase the time it will take for ulcers to heal. If you get black, tarry stools or vomit up what looks like coffee grounds, call your doctor or health customer care assistant at once. You may have a bleeding ulcer. You have been given the following additional information: Epigastric Pain (Uncertain Cause) Symptoms With Uncertain Cause Diet, Ziebach (Adult) Diet, Clear Liquid Ondansetron Hydrochloride Oral tablet Famotidine Oral tablet (Electronically signed by Sweetie Lorenz P.A.-C 05/02/2016 23:25)
--- NOTE | 2016-05-03 00:19 | ED MAR SUMMARY ---
..... Medication Administration Record [facility] [address] [place] [address] Patient: HENRY ALBRIGHT Visit ID: [id number] 25y, F Weight: 72.5 kg Height/Length: 61 in BMI: 30.2 ALLERGIES: Codeine, Compazine, Reglan, Toradol, Vancomycin Start 20:56 05/02/2016 Roc Coelho R.N., Stop 23:31 05/02/2016 Roc Coelho R.N. Medication Administered: IV NS (SALINE), Dose: IV Fluids, Bolus: 1000 mL wide open, Site: #1 left wrist. Medication Ordered: IV NS : initial bolus 1000 mL (1000 mL/hr), then 1000 mL/hr for X1 (NOW); Carlos. Start 20:57 05/02/2016 Roc Coelho R.N. Medication Administered: PHENERGAN [IVPB] (PROMETHAZINE HCL), Dose: 12.5 mg IVPB over 15 minute(s), Dispensed: 1000 mL bag, Site: #1 left wrist. Medication Ordered: Phenergan IV 12.5 mg (HIGH ALERT MEDICATION, NOW). Given 22:08 05/02/2016 Roc Coelho R.N. Medication Administered: HYDROCODONE-APAP [PO] (HYDROCODONE-ACETAMINOPHEN), Dose: 10 mL 5/325 mg Tablets PO. Medication Ordered: Hydrocodone-APAP PO 30 mL (NOW, HIGH ALERT MEDICATION). Given 23:29 05/02/2016 Roc Coelho R.N. Medication Administered: PHENERGAN [FL] (PROMETHAZINE HCL), Dose: 12.5 mg Supp/(FL) FL. Medication Ordered: Phenergan FL 12.5 mg (HIGH ALERT MEDICATION).
== END 2016-05-02 23:33 | disposition home or self-care (01) ==
LOC: ED SRH 19:52
DX: R10.10 Upper abdominal pain, unspecified (principal); Z88.1 Allergy status to other antibiotic agents; Z88.5 Allergy status to narcotic agent; Z88.8 Allergy status to other drugs, medicaments and biological substances
CPT/HCPCS: 90004; 90100; 92235; 93070; 95059

== ENCOUNTER 2016-07-16 20:03 | Emergency (ER) | payer OTHER ==
--- NOTE | 2016-07-16 22:37 | ED NURSING NOTES ---
Clinical Report - [facility] [address] [place] [address] 07/16/2016 20:03 [id number] Triage time 20:20 Jul 16 2016. Acuity: LEVEL 3. Chief Complaint: NAUSEA and VOMITING. Alert. ANGELA COMA SCORE: Angela Coma Scale: 15- eyes open spontaneously (4); best verbal response- oriented x 4 (5); best motor response- obeys commands (6). --20:43 Keaton Vasquez R.N. 20:27 07/16/16. BP: 155/72. HR: 96. RR: 16. O2 saturation: 100%. Temp: 98.4 F. Pain level now: 09/28. Additional comments: RUSSO pain. --20:43 Keaton Vasquez R.N. Weight: 61.2 kg stated. Height/Length: 61 inches Per Patient. BMI: 25.5. --20:28 Keaton Vasquez R.N. Medications Methadone HCl Oral 107. --20:36 Keaton Vasquez R.N. ALPRAZolam Oral 1 mg, 3x a day as needed. Levothyroxine Sodium Oral 125 mcg, daily. Naproxen Oral 500 mg, 3x a day as needed. Tylenol Oral. --20:36 Keaton Vasquez R.N. PrePLUS Oral, daily. --20:37 Keaton Vasquez R.N. The following entry was struck and corrected by Keaton Vasquez R.N., 20:39 (07/16/16) Reason for correction - other(correction). <<STRICKEN ENTRY-- Methadone HCl Oral 78. --20:36 Keaton Vasquez R.N. --END STRIKE>>. Allergies Codeine.(itching) Compazine.(anxiety) Reglan.(anxiety) Toradol.(anxiety) Vancomycin.(itching, swelling) --20:36 Keaton Vasquez R.N. Medication/allergy information source: the patient. --20:43 Keaton Vasquez R.N. History Arrived by private vehicle. Historian: patient. Accompanied by family. Primary physician (M[place] Mariee). ( Irregular Heart Rhythm and her anxiety is getting worse and she has a RUSSO and neck pain. she states that she is 13 1/2 weeks .). Onset. (about 5 days ago). She has had nausea and vomiting. Last oral intake by patient was (about 8 hours ago). Treatment RECORD CUTTER: None. PAST MEDICAL HX: Currently . In 1st trimester. SOCIAL HX: Light tobacco smoker (cigarette)- less than 1/2 a pack per day. History of drug use: heroin. (stopped taking 6 1/2 years ago). No alcohol use. No recent travel. No infectious disease exposure. ABUSE ASSESSMENT: No report of abuse. FALL RISK ASSESSMENT: Fall risk assessment completed. No fall risk identified. NUTRITIONAL RISK ASSESSMENT: The nutritional risk assessment revealed no deficiencies. FUNCTIONAL ASSESSMENT: Functional assessment: no impairments noted. LEARNING NEEDS ASSESSMENT: The learning needs assessment revealed no barriers. SKIN INTEGRITY ASSESSMENT: Skin integrity risk assessment completed. No skin integrity risk identified. --20:43 Keaton Vasquez R.N. PROBLEMS: Abdominal Pain. Urinary Calculi. Back Pain. Acute Pain. Substance Abuse. Immunizations. Cellulitis. Pharyngitis. LNMP - Last Normal Menstrual Period. Lifestyle / Substance Problems. Abscess. --20:43 Keaton Vasquez R.N. ADDITIONAL SURGERIES: Abscess I&D's. Hernia Repair. Inguinal Hernia Repair. --20:43 Keaton Vasquez R.N. Interventions ID band on patient. To treatment room. --20:43 Keaton Vasquez R.N. Allergy band on patient. --20:43 Keaton Vasquez R.N. PHYSICAL ASSESSMENT Ambulatory to room. GENERAL / NEURO / PSYCH: Alert. Oriented X 4. Appears in pain and anxious. HEENT: Mucous membranes are pink. RESPIRATORY: Respirations not labored. CVS: Normal sinus rhythm noted. Cardiac rhythm: normal sinus rhythm. GI / : Abdomen soft and nontender. Bowel sounds within normal limits. SKIN: Skin is warm and dry. --20:44 Keaton Vasquez R.N. NURSING PROGRESS NOTES plate conditioner and pulse oximeter placed on patient; cutting machine offbearer- Lead II and V1; monitor alarms on. Patient gowned. Reassurance given to the patient and patient's family. Patient identifiers checked. Call light placed in reach. Side rails up. Bed placed in lowest position. Brakes of bed on. Patient ready for evaluation- chart flagged and ED physician notified. --20:45 Keaton Vasquez R.N. 20:36. EKG was performed by a mira. --21:03 Paulette Hernandez, STACEY Tech1 21:03 07/16/2016 Site #1 started via IV in the left forearm with an 22g angiocath, with aseptic technique and good blood return; two attempts. Blood drawn: rainbow set. Labeled in the presence of the patient and sent to the lab. Saline lock flushed with 10 mL saline. --21:13 Keaton Vasquez R.N. 21:03 07/16/2016 Started bag #1 1000 mL IV Fluids IV NS (Saline); at 1000 mL/hr over 60 minute(s) via site #1 --21:13 Keaton Vasquez R.N. 21:11 07/16/2016 Tylenol (Acetaminophen) PO Tablets 650 mg given. Allergies verified and confirmed 5 rights. --21:16 Keaton Vasquez R.N. Telemetry strip posted to chart. --21:53 Paulette Hernandez, ER Tech1 21:47 07/16/2016 Zofran (Ondansetron HCl) IVP 8 mg given over 2 minute(s) via site #1. Allergies verified and confirmed 5 rights. IV patency established. IV site checked: no pain, redness, or swelling. IV flushed thoroughly pre- and post-medication administration. IVP given by RN. --22:02 Keaton Vasquez R.N. 22:33 07/16/16. BP: 114/52. HR: 77. RR: 20. O2 saturation: 100% on room air. Pain level now: 09/28. --22:34 Pina Story 22:05 07/16/2016 IV Fluids IV NS Discontinued: bag #1 infused. Total amount infused: 1000 mL. IV patency established. IV site checked: no pain, redness, or swelling. IV flushed thoroughly. --23:42 Keaton Vasquez R.N. 22:32 07/16/2016 Ativan (LORazepam) IVP 1 mg given over 1 minute(s) via site #1. Allergies verified, confirmed 5 rights and sedative warning given to the patient. IV patency established. IV site checked: no pain, redness, or swelling. IV flushed thoroughly pre- and post-medication administration. IVP given by RN. --22:32 PorshaParadise underwoodh 22:34 07/16/16. ( Patient still complaining of headache. Ice pack provided and warm blankets.). --22:34 PorshaPian underwood 22:46 07/16/2016 Benadryl (DiphenhydrAMINE HCl) IVP 50 mg given over 2 minute(s) via site #1. Allergies verified, confirmed 5 rights and sedative warning given. IV patency established. IV site checked: no pain, redness, or swelling. IV flushed thoroughly pre- and post-medication administration. IVP given by RN. --22:51 Keaton Vasquez R.N. 22:55 07/16/2016 Site #1 removed upon discharge. Catheter intact. Manual pressure and bandaid applied. --23:43 Keaton Vasquez R.N. DISPOSITION / DISCHARGE 22:50 07/16/16. BP: 130/77. HR: 80. RR: 18. O2 saturation: 99% on room air. Temp: 98.6 F (oral). Pain level now: 2/10. Additional comments: RUSSO pain. --23:40 Keaton Vasquez R.N. Departure time: 5. --23:40 Keaton Vasquez R.N. 22:55. Condition at departure: improved. No learning barriers present. Discharge instructions provided and reviewed with the patient and family. Reviewed medication(s) dosing information (prescription given to parent). Reviewed referral to family practice and a mainstreaming facilitator. Patient and family verbalized understanding. Written instructions provided in Divehi. The patient was discharged by the physician geological survey field assistant. She was discharged home and accompanied by family. She left the Emergency Department ambulatory and via private vehicle. Family member driving. --23:41 Keaton Vasquez R.N. Locked/Released at 07/16/2016 23:44 by Keaton Vasquez R.N.
--- NOTE | 2016-07-16 22:37 | ED NURSING NOTES ---
Clinical Report - Nurses [facility] [address] [place] [address] 07/16/2016 20:03 [id number] Triage time 20:20 Jul 16 2016. Acuity: LEVEL 3. Chief Complaint: NAUSEA and VOMITING. Alert. ANGELA COMA SCORE: Angela Coma Scale: 15- eyes open spontaneously (4); best verbal response- oriented x 4 (5); best motor response- obeys commands (6). --20:43 Keaton Vasquez R.N. 20:27 07/16/16. BP: 155/72. HR: 96. RR: 16. O2 saturation: 100%. Temp: 98.4 F. Pain level now: 09/28. Additional comments: RUSSO pain. --20:43 Keaton Vasquez R.N. Weight: 61.2 kg stated. Height/Length: 61 inches Per Patient. BMI: 25.5. --20:28 Keaton Vasquez R.N. Medications Methadone HCl Oral 107. --20:36 Keaton Vasquez R.N. ALPRAZolam Oral 1 mg, 3x a day as needed. Levothyroxine Sodium Oral 125 mcg, daily. Naproxen Oral 500 mg, 3x a day as needed. Tylenol Oral. --20:36 Keaton Vsaquez R.N. PrePLUS Oral, daily. --20:37 Keaton Vasquez R.N. The following entry was struck and corrected by Keaton Vasquez R.N., 20:39 (07/16/16) Reason for correction - other(correction). <<STRICKEN ENTRY-- Methadone HCl Oral 78. --20:36 Keaton Vasquez R.N. --END STRIKE>>. Allergies Codeine.(itching) Compazine.(anxiety) Reglan.(anxiety) Toradol.(anxiety) Vancomycin.(itching, swelling) --20:36 Keaton Vasquez R.N. Medication/allergy information source: the patient. --20:43 Keaton Vasquez R.N. History Arrived by private vehicle. Historian: patient. Accompanied by family. Primary physician (Maine Mariee). ( Irregular Heart Rhythm and her anxiety is getting worse and she has a RUSSO and neck pain. she states that she is 13 1/2 weeks .). Onset. (about 5 days ago). She has had nausea and vomiting. Last oral intake by patient was (about 8 hours ago). Treatment VULCANIZER RUBBER PLATE: None. PAST MEDICAL HX: Currently . In 1st trimester. SOCIAL HX: Light tobacco smoker (cigarette)- less than 1/2 a pack per day. History of drug use: heroin. (stopped taking 6 1/2 years ago). No alcohol use. No recent travel. No infectious disease exposure. ABUSE ASSESSMENT: No report of abuse. FALL RISK ASSESSMENT: Fall risk assessment completed. No fall risk identified. NUTRITIONAL RISK ASSESSMENT: The nutritional risk assessment revealed no deficiencies. FUNCTIONAL ASSESSMENT: Functional assessment: no impairments noted. LEARNING NEEDS ASSESSMENT: The learning needs assessment revealed no barriers. SKIN INTEGRITY ASSESSMENT: Skin integrity risk assessment completed. No skin integrity risk identified. --20:43 Keaton Vasquez R.N. PROBLEMS: Abdominal Pain. Urinary Calculi. Back Pain. Acute Pain. Substance Abuse. Immunizations. Cellulitis. Pharyngitis. LNMP - Last Normal Menstrual Period. Lifestyle / Substance Problems. Abscess. --20:43 Keaton Vasquez R.N. ADDITIONAL SURGERIES: Abscess I&D's. Hernia Repair. Inguinal Hernia Repair. --20:43 Keaton Vasquez R.N. Interventions ID band on patient. To treatment room. --20:43 Keaton Vasqeuz R.N. Allergy band on patient. --20:43 Keaton Vasquez R.N. PHYSICAL ASSESSMENT Ambulatory to room. GENERAL / NEURO / PSYCH: Alert. Oriented X 4. Appears in pain and anxious. HEENT: Mucous membranes are pink. RESPIRATORY: Respirations not labored. CVS: Normal sinus rhythm noted. Cardiac rhythm: normal sinus rhythm. GI / : Abdomen soft and nontender. Bowel sounds within normal limits. SKIN: Skin is warm and dry. --20:44 Keaton Vasquez R.N. NURSING PROGRESS NOTES radiation monitor and pulse oximeter placed on patient; cafeteria monitor- Lead II and V1; monitor alarms on. Patient gowned. Reassurance given to the patient and patient's family. Patient identifiers checked. Call light placed in reach. Side rails up. Bed placed in lowest position. Brakes of bed on. Patient ready for evaluation- chart flagged and ED physician notified. --20:45 Keaton Vasquez R.N. 20:36. EKG was performed by a mira. --21:03 Paulette Hernandez, STACEY Tech1 21:03 07/16/2016 Site #1 started via IV in the left forearm with an 22g angiocath, with aseptic technique and good blood return; two attempts. Blood drawn: rainbow set. Labeled in the presence of the patient and sent to the lab. Saline lock flushed with 10 mL saline. --21:13 Keaton Vasquez R.N. 21:03 07/16/2016 Started bag #1 1000 mL IV Fluids IV NS (Saline); at 1000 mL/hr over 60 minute(s) via site #1 --21:13 Keaton Vasquez R.N. 21:11 07/16/2016 Tylenol (Acetaminophen) PO Tablets 650 mg given. Allergies verified and confirmed 5 rights. --21:16 Keaton Vasquez R.N. Telemetry strip posted to chart. --21:53 Paulette Hernandez, ER Tech1 21:47 07/16/2016 Zofran (Ondansetron HCl) IVP 8 mg given over 2 minute(s) via site #1. Allergies verified and confirmed 5 rights. IV patency established. IV site checked: no pain, redness, or swelling. IV flushed thoroughly pre- and post-medication administration. IVP given by RN. --22:02 Keaton Vasquez R.N. 22:33 07/16/16. BP: 114/52. HR: 77. RR: 20. O2 saturation: 100% on room air. Pain level now: 09/28. --22:34 Pina Story 22:05 07/16/2016 IV Fluids IV NS Discontinued: bag #1 infused. Total amount infused: 1000 mL. IV patency established. IV site checked: no pain, redness, or swelling. IV flushed thoroughly. --23:42 Keaton Vasquez R.N. 22:32 07/16/2016 Ativan (LORazepam) IVP 1 mg given over 1 minute(s) via site #1. Allergies verified, confirmed 5 rights and sedative warning given to the patient. IV patency established. IV site checked: no pain, redness, or swelling. IV flushed thoroughly pre- and post-medication administration. IVP given by RN. --22:32 PorshaParadise underwoodh 22:34 07/16/16. ( Patient still complaining of headache. Ice pack provided and warm blankets.). --22:34 PorshaPina underwood 22:46 07/16/2016 Benadryl (DiphenhydrAMINE HCl) IVP 50 mg given over 2 minute(s) via site #1. Allergies verified, confirmed 5 rights and sedative warning given. IV patency established. IV site checked: no pain, redness, or swelling. IV flushed thoroughly pre- and post-medication administration. IVP given by RN. --22:51 Keaton Vasquez R.N. 22:55 07/16/2016 Site #1 removed upon discharge. Catheter intact. Manual pressure and bandaid applied. --23:43 Keaton Vasquez R.N. DISPOSITION / DISCHARGE 22:50 07/16/16. BP: 130/77. HR: 80. RR: 18. O2 saturation: 99% on room air. Temp: 98.6 F (oral). Pain level now: 2/10. Additional comments: RUSSO pain. --23:40 Keaton Vasquez R.N. Departure time: 5. --23:40 Keaton Vasquez R.N. 22:55. Condition at departure: improved. No learning barriers present. Discharge instructions provided and reviewed with the patient and family. Reviewed medication(s) dosing information (prescription given to parent). Reviewed referral to family practice and a office automation technician. Patient and family verbalized understanding. Written instructions provided in Occitan. The patient was discharged by the physician tv production assistant. She was discharged home and accompanied by family. She left the Emergency Department ambulatory and via private vehicle. Family member driving. --23:41 Keaton Vasquez R.N. Locked/Released at 07/16/2016 23:44 by Keaton Vasquez R.N.
--- NOTE | 2016-07-16 22:37 | ED CLINICAL REPORT ---
Clinical Report - Physicians/Mid Levels [facility] [address] [place] [address] 07/16/2016 20:03 Patient: HENRY ALBRIGHT Time Seen: 20:27 Jul 16 2016. Arrived- By private vehicle. Historian- patient and family. HISTORY OF PRESENT ILLNESS Chief Complaint: anxious/ n/v. It is described as located in the central chest area and other area. 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 (13 weeks IUP, reports anxious and, on thyroid medications reports no vaginal bleeding or cramping. Reports she has palpitations at times, this is not new. Patient is inquiring about narcotic medications she has previously been taken such. Patient in addition is also on methadone. She has had a previous ultrasound with a confirmed . Denies any vaginal bleeding, loss of fluid.). REVIEW OF SYSTEMS No fever, chills, cough, pedal edema or calf pain. No sore throat. All systems otherwise negative, except as recorded above. PAST HISTORY Problems: . Abdominal Pain. Urinary Calculi. Back Pain. Tetanus Status. Acute Pain. Substance Abuse. Immunizations. Cellulitis. Pharyngitis. LNMP - Last Normal Menstrual Period. Lifestyle / Substance Problems. Abscess. Additional Surgeries: Abscess I&D's. Hernia Repair. Inguinal Hernia Repair. Medications: PrePLUS Oral, daily. ALPRAZolam Oral 1 mg, 3x a day as needed. Levothyroxine Sodium Oral 125 mcg, daily. Naproxen Oral 500 mg, 3x a day as needed. Tylenol Oral. Methadone HCl Oral 107. Allergies: Codeine.(itching) Compazine.(anxiety) Reglan.(anxiety) Toradol.(anxiety) Vancomycin.(itching, swelling). ADDITIONAL NOTES The nursing notes have been reviewed. PHYSICAL EXAM Vital Signs: 07/16/2016 20:27 BP: 155/72. HR: 96. RR: 16. O2 saturation: 100%. Temp: 98.4 F. Pain level now: 7/10. Appearance: Alert. Eyes: Pupils equal, round and reactive to light. Eyes normal inspection. Neck: Normal inspection. No meningeal signs or lymphadenopathy. CVS: Normal heart rate and rhythm. Heart sounds normal. Respiratory: No respiratory distress. Breath sounds normal. Chest nontender. No chest pain reproduced on physical exam or decreased air movement. Abdomen: Soft and nontender. Gravid uterus palpable to just above pubic symphysis. Bowel sounds normal. Skin: Skin warm. Normal skin color. Neuro: Oriented X 3. LABS, X-RAYS, AND EKG EKG: EKG time: (2035). No acute process. No acute ischemia. Rate: 97. Normal P waves. Normal LION. Normal QRS complex. Normal axis. Normal QT. EKG unchanged when compared with prior EKG. (05/02/16). The study has been interpreted contemporaneously. The study has been independently viewed by me. The EKG appears to be a good tracing. Laboratory Tests: UA-Culture if indicated: (YUNG: 07/16/2016 21:40) ( [facility] 07/16/2016 22:12) Final results Test Result Flag Units (Reference) URINE COLOR YELLOW URINE APPEARANCE CLEAR URINE GLUCOSE NEGATIVE (NEGATIVE) URINE BILIRUBIN NEGATIVE (NEGATIVE) URINE KETONE NEGATIVE (NEGATIVE) URINE SPECIFIC GRAVITY <= 1.005 L (1.010-1.030) URINE PH 5.5 (5.0-8.0) URINE PROTEIN NEGATIVE (NEGATIVE) URINE UROBILINOGEN 0.2 EU/dL (0.2-1.0) URINE NITRITE NEGATIVE (NEGATIVE) URINE BLOOD NEGATIVE (NEGATIVE) URINE LEUK ESTERASE NEGATIVE (NEGATIVE) URINE RBC NONE SEEN rbc/hpf (0-1) URINE WBC 1-3 wbc/hpf (0-1) URINE EPITHELIAL CELLS 3-5 EPI/hpf (0-5) URINE BACTERIA NONE SEEN (NONE SEEN) URINE COMMENT CULT NOT INDICATED 1+ MUCOUSURINE CULTURES ARE SET-UP BASED ON THE FOLLOWING CRITERIA:POSITIVE NITRITEPOSITIVE LEUKOCYTE ESTERASEGREATER THAN 10 WHITE BLOOD CELLSMODERATE (2+) OR GREATER BACTERIA CBC w Diff: (YUNG: 07/16/2016 21:05) ( [facility] 07/16/2016 21:33) Final results Test Result Flag Units (Reference) WHITE BLOOD COUNT 8.4 K/uL (4.5-11.5) RED BLOOD COUNT 4.16 M/uL (4.00-5.20) HEMOGLOBIN 12.4 gm/dL (12.0-16.0) HEMATOCRIT 36.4 % (36.0-46.0) MEAN CELL VOLUME 87 fL (80-100) MEAN CORPUSCULAR HGB 30 pg (26-34) MEAN CORPUSCULAR HGB CONC 34 g/dL (31-37) RED CELL DISTRIBUTION WIDTH 12.7 % (11.6-14.8) PLATELET COUNT 224 K/uL (150-400) NEUTROPHIL % 57.5 % (50-75) LYMPH % 35.9 % (25-40) MONO % 5.2 % (3-14) EOSINOPHIL % 1.2 % (0-4) BASOPHIL % 0.2 % (0-2) CMP: (YUNG: 07/16/2016 21:05) ( MsgRcvd 07/16/2016 21:54) Final results Test Result Flag Units (Reference) GLUCOSE 109 mg/dL (70-110) BUN 6 L mg/dL (7-18) CREATININE 0.8 mg/dL (0.6-1.3) Estimated GFR >60 mL/min Estimated GFR- >60 mL/min Note: Persistent reduction over 3 months in eGFR<60 mL/min/1.73 m2 defines CKD. Patients with eGFR values>=60 mL/min/1.73 m2 may also have CKD if evidence ofpersistent proteinuria. Additional information may be foundat www.kidney.org. SODIUM 140 mmol/L (136-145) POTASSIUM 3.6 mmol/L (3.5-5.1) CHLORIDE 106 mmol/L (98-107) CARBON DIOXIDE 20 L mmol/L (21-32) CALCIUM 8.6 mg/dL (8.5-10.1) TOTAL PROTEIN 7.2 g/dL (6.4-8.2) ALBUMIN 3.3 g/dL (3.3-5.0) BILIRUBIN, TOTAL 0.1 mg/dL (0.0-1.0) ALKALINE PHOSPHATASE 46 U/L (46-116) AST (SGOT) 45 H U/L (15-37) ALT (SGPT) 59 U/L (12-78) THYROID STIMULATING HORMONE 2.341 uIU/mL (0.34-3.74) FREE T4 (FREE THYROXINE) 0.95 ng/dL (0.78-4.13) . PROGRESS AND PROCEDURES Course of Care: Patient is wearing car and about narcotic medications, reports the clinic referred her to the ER for pain management. I informed patient and lost anything would be completely abnormal I am not comfortable giving her pain medications for an unclear cause at this time. She has been having a headache, anxiety which is not new to her. She reports the symptoms worsen after she started her thyroid medications about 3 months previously, around the time of conception of her . Her labs here in the ED are very unremarkable, she'll be or should go home, hydrate well take antiemetic medications as needed and follow up with her provider. Patient and family inquiring about multiple things, this is not a new acute condition, patient has a history of using opiates despite being , I'm not comfortable prescribing her such medications. Lab workup in the ER is unremarkable. Her thyroid functions are within good limits. No meningeal signs. 07/16/2016 22:33 BP: 114/52. HR: 77. RR: 20. O2 saturation: 100%. Pain level now: 7/10. Patient is stable. Symptoms better. Patient/family counseled. Disposition: Discharged. CLINICAL IMPRESSION Moderate nausea. Atypical chest pain INSTRUCTIONS No strenuous activity. Rest. Avoid stimulants (such as cigarettes, coffee, cold medicines, sinus medicines, street drugs). Do not smoke. Warnings: Further evaluation is necessary. SEDATIVE MEDICATION: You were given sedative medication during your visit. Do not drive or operate dangerous machinery. Prescription Medications: Zofran take 1-2 orally every 6 hours for 3 days as needed for nausea. Dispense fifteen (15). No refill. Substitution is permissible. Follow-up: Follow up with your doctor tomorrow Wednesday. (Electronically signed by Sweetie Lorenz P.A.-C 07/16/2016 23:04)
--- NOTE | 2016-07-16 22:37 | ED ORDER SUMMARY ---
..... Patient: HENRY ALBRIGHT OrderSheet [facility] VisitID: [id number] [place] [address] 26y, F Registration Date/Time: 07/16/2016 ORDER SHEET Weight: 61.2 kg (stated) Allergies: Codeine, Compazine, Reglan, Toradol, Vancomycin GENERAL ORDERS: CBC w Diff Urgent (20:26 07/16/2016 EKoroleva P.A.-C) (Ack 20:29 PWeiler ER Tech1) (21:16 JRomanelli R.N.) CMP Urgent (20:26 07/16/2016 EKoroleva P.A.-C) (Ack 20:29 PWeiler ER Tech1) (21:16 JRomanelli R.N.) UA-Culture if indicated Urgent (20:26 07/16/2016 EKoroleva P.A.-C) (Ack 20:29 PWeiler ER Tech1) (21:43 CFalkner R.N.) FT4(Free T4) Urgent (20:26 07/16/2016 EKoroleva P.A.-C) (Ack 20:29 PWeiler ER Tech1) (21:16 JRomanelli R.N.) TSH Urgent (20:26 07/16/2016 EKoroleva P.A.-C) (Ack 20:29 PWeiler ER Tech1) (21:16 JRomanelli R.N.) EKG - ER Stat (20:40 07/16/2016 AMcQuoid ER Tech1 verbal order read back to EKoroleva P.A.-C) (20:40 AMcQuoid ER Tech1) Vitals (22:22 07/16/2016 EKoroleva P.A.-C) (Ack 22:27 HSoule) (22:32 HSoule) MEDICATION ORDERS: Tylenol PO 650 mg (NOW) (21:09 07/16/2016 EKoroleva P.A.-C) (21:16 JRomanelli R.N.) IV FLUIDS: IV NS : initial bolus 1000 mL (1000 mL/hr), then 1000 mL/hr for X1 (NOW); Carlos (20:26 07/16/2016 EKoroleva P.A.-C) (21:13 omanelli R.N.) Zofran IV 8 mg (NOW) (21:24 07/16/2016 EKoroleva P.A.-C) (Ack 21:47 HSoule) (22:02 JRomanelli R.N.) Ativan IV 1 mg (HIGH ALERT MEDICATION, NOW) (22:21 07/16/2016 EKoroleva P.A.-C) (Ack 22:27 HSoule) (22:32 HSoule) Benadryl IV 50 mg (NOW) (22:35 07/16/2016 EKoroleva P.A.-C) (22:51 omanelli R.N.) ORDER SHEET NOTES: [Electronically signed by Sweetie Lorenz-C (23:04 07/16/2016)] [Electronically signed by Keaton Vasquez R.N. (23:44 07/16/2016)] [Electronically locked/signed by Keaton Vasquez R.N. (23:44 07/16/2016)]
--- NOTE | 2016-07-16 22:37 | ED ORDER SUMMARY ---
..... Patient: HENRY ALBRIGHT OrderSheet [facility] VisitID: [id number] [place] [address] 26y, F Registration Date/Time: 07/16/2016 ORDER SHEET Weight: 61.2 kg (stated) Allergies: Codeine, Compazine, Reglan, Toradol, Vancomycin GENERAL ORDERS: CBC w Diff Urgent (20:26 07/16/2016 EKoroleva P.A.-C) (Ack 20:29 PWeiler ER Tech1) (21:16 JRomanelli R.N.) CMP Urgent (20:26 07/16/2016 EKoroleva P.A.-C) (Ack 20:29 PWeiler ER Tech1) (21:16 JRomanelli R.N.) UA-Culture if indicated Urgent (20:26 07/16/2016 EKoroleva P.A.-C) (Ack 20:29 PWeiler ER Tech1) (21:43 CFalkner R.N.) FT4(Free T4) Urgent (20:26 07/16/2016 EKoroleva P.A.-C) (Ack 20:29 PWeiler ER Tech1) (21:16 JRomanelli R.N.) TSH Urgent (20:26 07/16/2016 EKoroleva P.A.-C) (Ack 20:29 PWeiler ER Tech1) (21:16 JRomanelli R.N.) EKG - ER Stat (20:40 07/16/2016 AMcQuoid ER Tech1 verbal order read back to EKoroleva P.A.-C) (20:40 AMcQuoid ER Tech1) Vitals (22:22 07/16/2016 EKoroleva P.A.-C) (Ack 22:27 HSoule) (22:32 HSoule) MEDICATION ORDERS: Tylenol PO 650 mg (NOW) (21:09 07/16/2016 EKoroleva P.A.-C) (21:16 JRomanelli R.N.) IV FLUIDS: IV NS : initial bolus 1000 mL (1000 mL/hr), then 1000 mL/hr for X1 (NOW); Carlos (20:26 07/16/2016 EKoroleva P.A.-C) (21:13 omanelli R.N.) Zofran IV 8 mg (NOW) (21:24 07/16/2016 EKoroleva P.A.-C) (Ack 21:47 HSoule) (22:02 JRomanelli R.N.) Ativan IV 1 mg (HIGH ALERT MEDICATION, NOW) (22:21 07/16/2016 EKoroleva P.A.-C) (Ack 22:27 HSoule) (22:32 HSoule) Benadryl IV 50 mg (NOW) (22:35 07/16/2016 EKoroleva P.A.-C) (22:51 omanelli R.N.) ORDER SHEET NOTES: [Electronically signed by Sweetie Lorenz-C (23:04 07/16/2016)] [Electronically signed by Keaton Vasquez R.N. (23:44 07/16/2016)] [Electronically locked/signed by Keaton Vasquez R.N. (23:44 07/16/2016)]
--- NOTE | 2016-07-16 23:44 | ED MAR SUMMARY ---
..... Medication Administration Record [facility] [address] [place] [address] Patient: HENRY ALBRIGHT Visit ID: [id number] 26y, F Weight: 61.2 kg Height/Length: 61 in BMI: 25.5 ALLERGIES: Codeine, Compazine, Reglan, Toradol, Vancomycin Start 21:03 07/16/2016 Keaton Vasquez RKanuNKanu, Stop 22:05 07/16/2016 Keaton Vasquez R.N. Medication Administered: IV NS (SALINE), Dose: IV Fluids over 60 minute(s), Rate: 1000 mL/hr, Dispensed: 1000 mL bag, Site: #1 left forearm. Medication Ordered: IV NS : initial bolus 1000 mL (1000 mL/hr), then 1000 mL/hr for X1 (NOW); Carlos. Given 21:11 07/16/2016 Keaton Vasquez R.N. Medication Administered: TYLENOL [PO] (ACETAMINOPHEN), Dose: 650 mg Tablets PO. Medication Ordered: Tylenol PO 650 mg (NOW). Given 21:47 07/16/2016 Keaton Vasquez R.N. Medication Administered: ZOFRAN [IVP] (ONDANSETRON HCL), Dose: 8 mg IVP over 2 minute(s), Site: #1 left forearm. Medication Ordered: Zofran IV 8 mg (NOW). Given 22:32 07/16/2016 Pina Story, Medication Administered: ATIVAN [IVP] (LORAZEPAM), Dose: 1 mg IVP over 1 minute(s), Site: #1 left forearm. Medication Ordered: Ativan IV 1 mg (HIGH ALERT MEDICATION, NOW). Given 22:46 07/16/2016 Keaton Vasquez R.N. Medication Administered: BENADRYL [IVP] (DIPHENHYDRAMINE HCL), Dose: 50 mg IVP over 2 minute(s), Site: #1 left forearm. Medication Ordered: Benadryl IV 50 mg (NOW).
--- NOTE | 2016-07-16 23:44 | ED MED RECONCILIATION SUMMARY ---
Patient: HENRY ALBRIGHT Medication Reconciliation Report [facility] VisitID: [id number] [address] [place] [address] 26y, F Registration Date/Time: 07/16/2016 Weight: 61.2 kg Height/Length: 61 in. BMI: 25.5 ALLERGIES: Codeine, Compazine, Reglan, Toradol, Vancomycin The patient's Home Medications are listed below: THE FOLLOWING MEDICATIONS NEED TO BE RECONCILED: ALPRAZolam Oral 1 mg, 3x a day Levothyroxine Sodium Oral 125 mcg, daily Methadone HCl Oral 107 Naproxen Oral 500 mg, 3x a day PrePLUS Oral, daily Tylenol Oral The source(s) of the original Home Medication information: patient The following Medications were given to the patient in the Emergency Department: IV NS IV Fluids bolus 0, then 1000 mL/hr, administered: 07/16/2016 9:03:00 PM Tylenol [PO] PO 650 mg, administered: 07/16/2016 9:11:00 PM Zofran [IVP] IVP 8 mg, administered: 07/16/2016 9:47:00 PM Ativan [IVP] IVP 1 mg, administered: 07/16/2016 10:32:00 PM Benadryl [IVP] IVP 50 mg, administered: 07/16/2016 10:46:00 PM The following Medications were prescribed to the patient: Zofran take 1-2 orally every 6 hours for 3 days as needed for nausea. Dispense fifteen (15). No refill. Substitution is permissible. -- Sweetie Lorenz PKanuAKanu-C
--- NOTE | 2016-07-16 23:44 | ED DISCHARGE INSTRUCTIONS ---
Patient: HENRY ALBRIGHT General Instructions [facility] VisitID: [id number] [place] [address] 26y, F Registration Date/Time: 07/16/2016 Moderate nausea. Atypical chest pain INSTRUCTIONS No strenuous activity. Rest. Avoid stimulants (such as cigarettes, coffee, cold medicines, sinus medicines, street drugs). Do not smoke. Warnings: Further evaluation is necessary. SEDATIVE MEDICATION: You were given sedative medication during your visit. Do not drive or operate dangerous machinery. Prescription Medications: Zofran take 1-2 orally every 6 hours for 3 days as needed for nausea. Dispense fifteen (15). No refill. Substitution is permissible. Follow-up: Follow up with your doctor tomorrow Wednesday. ADDITIONAL INFORMATION Chest Pain, Uncertain Cause Chest pain can happen for a number of reasons. Sometimes the cause can not be determined. If yourcondition does not seem serious, and your pain does not appear to be coming from your heart, your doctor may recommend watching it closely. Sometimes the signs of a serious problem take more time to appear. Therefore, watch for the warning signs listed below. Home care After your visit, follow these recommendations: Rest today and avoid strenuous activity. Take any prescribed medicine as directed. Follow-up care Follow up with your doctor or this facility as instructed or if you do not start to feel better within 24 hours. Call 911 Get immediate medical attention if any of the following occur: A change in the type of pain: if it feels different, becomes more severe, lasts longer, or begins to spread into your shoulder, arm, neck, jaw or back Shortness of breath or increased pain with breathing Weakness, dizziness, or fainting Rapid heart beat Get prompt medical attention Call your doctor right away if any of the following occur: Cough with dark colored sputum (phlegm) or blood Fever of 100.4F(38C) or higher, or as directed by your health care provider Swelling, pain or redness in one leg Ondansetron Hydrochloride Oral tablet What is this medicine? ONDANSETRON (on [place]) is used to treat nausea and vomiting caused by chemotherapy. It is also used to prevent or treat nausea and vomiting after surgery. How should I use this medicine? Take this medicine by mouth with a glass of water. Follow the directions on your prescription label. Take your doses at regular intervals. Do not take your medicine more often than directed. Talk to your cutch cleaner regarding the use of this medicine in children. Special care may be needed. What side effects may I notice from receiving this medicine? Side effects that you should report to your doctor or health urgent care physician as soon as possible: allergic reactions like skin rash, itching or hives, swelling of the face, lips or tongue breathing problems dizziness fast or irregular heartbeat feeling faint or lightheaded, falls fever and chills swelling of the hands or feet tightness in the chest Side effects that usually do not require medical attention (report to your doctor or health urgent care physician if they continue or are bothersome): constipation or diarrhea headache What may interact with this medicine? Do not take this medicine with any of the following medications: -apomorphine -cisapride -dofetilide -dronedarone -pimozide -thioridazine -ziprasidone This medicine may also interact with the following medications: -carbamazepine -phenytoin -rifampicin -tramadol -other medicines that prolong the QT interval (cause an abnormal heart rhythm) What if I miss a dose? If you miss a dose, take it as soon as you can. If it is almost time for your next dose, take only that dose. Do not take double or extra doses. Where should I keep my medicine? Keep out of the reach of children. Store between 2 and 30 degrees C (36 and 86 degrees F). Throw away any unused medicine after the expiration date. What should I tell my health care provider before I take this medicine? They need to know if you have any of these conditions: heart disease history of irregular heartbeat liver disease low levels of magnesium or potassium in the blood an unusual or allergic reaction to ondansetron, granisetron, other medicines, foods, dyes, or preservatives or trying to get breast-feeding What should I watch for while using this medicine? Check with your doctor or health urgent care physician right away if you have any sign of an allergic reaction. You have been given the following additional information: Chest Pain, Uncertain Cause Ondansetron Hydrochloride Oral tablet No strenuous activity. Rest. (Electronically signed by Sweetie Lorenz P.A.-C 07/16/2016 23:04)
--- NOTE | 2016-07-16 23:44 | ED MAR SUMMARY ---
..... Medication Administration Record [facility] [address] [place] [place] [address] Patient: HENRY ALBRIGHT Visit ID: [id number] 26y, F Weight: 61.2 kg Height/Length: 61 in BMI: 25.5 ALLERGIES: Codeine, Compazine, Reglan, Toradol, Vancomycin Start 21:03 07/16/2016 Keaton Vasquez RKanuNKanu, Stop 22:05 07/16/2016 Keaton Vasquez R.N. Medication Administered: IV NS (SALINE), Dose: IV Fluids over 60 minute(s), Rate: 1000 mL/hr, Dispensed: 1000 mL bag, Site: #1 left forearm. Medication Ordered: IV NS : initial bolus 1000 mL (1000 mL/hr), then 1000 mL/hr for X1 (NOW); Carlos. Given 21:11 07/16/2016 Keaton Vasquez R.N. Medication Administered: TYLENOL [PO] (ACETAMINOPHEN), Dose: 650 mg Tablets PO. Medication Ordered: Tylenol PO 650 mg (NOW). Given 21:47 07/16/2016 Keaton Vasquez R.N. Medication Administered: ZOFRAN [IVP] (ONDANSETRON HCL), Dose: 8 mg IVP over 2 minute(s), Site: #1 left forearm. Medication Ordered: Zofran IV 8 mg (NOW). Given 22:32 07/16/2016 Pina Story, Medication Administered: ATIVAN [IVP] (LORAZEPAM), Dose: 1 mg IVP over 1 minute(s), Site: #1 left forearm. Medication Ordered: Ativan IV 1 mg (HIGH ALERT MEDICATION, NOW). Given 22:46 07/16/2016 Keaton Vasquez R.N. Medication Administered: BENADRYL [IVP] (DIPHENHYDRAMINE HCL), Dose: 50 mg IVP over 2 minute(s), Site: #1 left forearm. Medication Ordered: Benadryl IV 50 mg (NOW).
--- NOTE | 2016-07-16 23:44 | ED DISCHARGE INSTRUCTIONS ---
Patient: HENRY ALBRIGHT General Instructions [facility] VisitID: [id number] [place] [address] 26y, F Registration Date/Time: 07/16/2016 Moderate nausea. Atypical chest pain INSTRUCTIONS No strenuous activity. Rest. Avoid stimulants (such as cigarettes, coffee, cold medicines, sinus medicines, street drugs). Do not smoke. Warnings: Further evaluation is necessary. SEDATIVE MEDICATION: You were given sedative medication during your visit. Do not drive or operate dangerous machinery. Prescription Medications: Zofran take 1-2 orally every 6 hours for 3 days as needed for nausea. Dispense fifteen (15). No refill. Substitution is permissible. Follow-up: Follow up with your doctor tomorrow Wednesday. ADDITIONAL INFORMATION Chest Pain, Uncertain Cause Chest pain can happen for a number of reasons. Sometimes the cause can not be determined. If yourcondition does not seem serious, and your pain does not appear to be coming from your heart, your doctor may recommend watching it closely. Sometimes the signs of a serious problem take more time to appear. Therefore, watch for the warning signs listed below. Home care After your visit, follow these recommendations: Rest today and avoid strenuous activity. Take any prescribed medicine as directed. Follow-up care Follow up with your doctor or this facility as instructed or if you do not start to feel better within 24 hours. Call 911 Get immediate medical attention if any of the following occur: A change in the type of pain: if it feels different, becomes more severe, lasts longer, or begins to spread into your shoulder, arm, neck, jaw or back Shortness of breath or increased pain with breathing Weakness, dizziness, or fainting Rapid heart beat Get prompt medical attention Call your doctor right away if any of the following occur: Cough with dark colored sputum (phlegm) or blood Fever of 100.4F(38C) or higher, or as directed by your health care provider Swelling, pain or redness in one leg Ondansetron Hydrochloride Oral tablet What is this medicine? ONDANSETRON (on [place]) is used to treat nausea and vomiting caused by chemotherapy. It is also used to prevent or treat nausea and vomiting after surgery. How should I use this medicine? Take this medicine by mouth with a glass of water. Follow the directions on your prescription label. Take your doses at regular intervals. Do not take your medicine more often than directed. Talk to your inspector packer glass container regarding the use of this medicine in children. Special care may be needed. What side effects may I notice from receiving this medicine? Side effects that you should report to your doctor or health skin care therapist as soon as possible: allergic reactions like skin rash, itching or hives, swelling of the face, lips or tongue breathing problems dizziness fast or irregular heartbeat feeling faint or lightheaded, falls fever and chills swelling of the hands or feet tightness in the chest Side effects that usually do not require medical attention (report to your doctor or health skin care therapist if they continue or are bothersome): constipation or diarrhea headache What may interact with this medicine? Do not take this medicine with any of the following medications: -apomorphine -cisapride -dofetilide -dronedarone -pimozide -thioridazine -ziprasidone This medicine may also interact with the following medications: -carbamazepine -phenytoin -rifampicin -tramadol -other medicines that prolong the QT interval (cause an abnormal heart rhythm) What if I miss a dose? If you miss a dose, take it as soon as you can. If it is almost time for your next dose, take only that dose. Do not take double or extra doses. Where should I keep my medicine? Keep out of the reach of children. Store between 2 and 30 degrees C (36 and 86 degrees F). Throw away any unused medicine after the expiration date. What should I tell my health care provider before I take this medicine? They need to know if you have any of these conditions: heart disease history of irregular heartbeat liver disease low levels of magnesium or potassium in the blood an unusual or allergic reaction to ondansetron, granisetron, other medicines, foods, dyes, or preservatives or trying to get breast-feeding What should I watch for while using this medicine? Check with your doctor or health skin care therapist right away if you have any sign of an allergic reaction. You have been given the following additional information: Chest Pain, Uncertain Cause Ondansetron Hydrochloride Oral tablet No strenuous activity. Rest. (Electronically signed by Sweetie Lorenz P.A.-C 07/16/2016 23:04)
--- NOTE | 2016-07-16 23:44 | ED MED RECONCILIATION SUMMARY ---
Patient: HENRY ALBRIGHT Medication Reconciliation Report [facility] VisitID: [id number] [address] [place] [address] 26y, F Registration Date/Time: 07/16/2016 Weight: 61.2 kg Height/Length: 61 in. BMI: 25.5 ALLERGIES: Codeine, Compazine, Reglan, Toradol, Vancomycin The patient's Home Medications are listed below: THE FOLLOWING MEDICATIONS NEED TO BE RECONCILED: ALPRAZolam Oral 1 mg, 3x a day Levothyroxine Sodium Oral 125 mcg, daily Methadone HCl Oral 107 Naproxen Oral 500 mg, 3x a day PrePLUS Oral, daily Tylenol Oral The source(s) of the original Home Medication information: patient The following Medications were given to the patient in the Emergency Department: IV NS IV Fluids bolus 0, then 1000 mL/hr, administered: 07/16/2016 9:03:00 PM Tylenol [PO] PO 650 mg, administered: 07/16/2016 9:11:00 PM Zofran [IVP] IVP 8 mg, administered: 07/16/2016 9:47:00 PM Ativan [IVP] IVP 1 mg, administered: 07/16/2016 10:32:00 PM Benadryl [IVP] IVP 50 mg, administered: 07/16/2016 10:46:00 PM The following Medications were prescribed to the patient: Zofran take 1-2 orally every 6 hours for 3 days as needed for nausea. Dispense fifteen (15). No refill. Substitution is permissible. -- Sweetie Lorenz PKanuAKanu-C
== END 2016-07-16 22:55 | disposition home or self-care (01) ==
LOC: ED SRH 20:03
DX: O99.89 Other specified diseases and conditions complicating pregnancy, childbirth and the puerperium (principal); R11.0 Nausea; R07.89 Other chest pain; O99.321 Drug use complicating pregnancy, first trimester; F11.20 Opioid dependence, uncomplicated; Z79.899 Other long term (current) drug therapy; O99.281 Endocrine, nutritional and metabolic diseases complicating pregnancy, first trimester; E07.9 Disorder of thyroid, unspecified; Z3A.13 13 weeks gestation of pregnancy; Z79.1 Long term (current) use of non-steroidal anti-inflammatories (NSAID); Z88.1 Allergy status to other antibiotic agents; Z88.5 Allergy status to narcotic agent; Z88.8 Allergy status to other drugs, medicaments and biological substances
CPT/HCPCS: 90004; 90100; 90648; 93140; 95059